=== PATIENT | male | born 1955 | race Caucasian/White ===

== ENCOUNTER 2020-10-27 06:38 | Emergency (ER) | payer MEDICARE, MEDICAID, SELFPAY ==
[2020-10-27 07:22] VITALS: BP 144/90; PULSE 85; RESP 18; TEMP 37.7; O2SAT 95; BMI 34.3
--- NOTE | 2020-10-27 08:00 | ED.GENADULT ---
HPI - General Adult General Chief complaint: General Medical Stated complaint: FLU LIKE SYMPTOMS Time Seen by Provider: 10/27/20 07:29 Source: patient Limitations: language barrier (translator/interpreter used for interview) History of Present Illness HPI narrative: 65-year-old male who presents emergency department for evaluation of headache and body aches. He states that he has been feeling sick for approximately 3 days. He states that his entire body aches, describes it as a dull constant achiness in all of his muscles. Also states that he has a dull, constant, diffuse headache which is [id number] in intensity. The patient states he has had fatigue as well. He denied fever, chills, cough, sore throat, chest pain, shortness of breath, dyspnea on exertion. The patient did not take any medications for his symptoms. He has not had any known COVID-19 contacts or other sick contacts. Related Data Allergies Allergy/AdvReac Type Severity Reaction Status Date / Time lisinopril [LISINOPRIL] Allergy Severe ANGIOEDEMA- Verified 10/27/20 07:24 TONGUE SWELLING Review of Systems Review of Systems: Yes all other systems are reviewed and are negative Constitutional: Constitutional: Reports as per HPI Eyes: Eyes: Reports as per HPI ENT: Reports as per HPI Cardiovascular: Cardiovascular: Reports as per HPI Respiratory: Respiratory: Reports as per HPI Gastrointestinal: Gastrointestinal: Reports as per HPI Genitourinary: Genitourinary: Reports as per HPI Musculoskeletal: Musculoskeletal: Reports as per HPI Integumentary/Breasts: Skin/Breast: Reports as per HPI Neurologic: Reports as per HPI and Reports Abnormal speech present Psychiatric: Psychiatric: Reports as per HPI Allergic/Immunologic: Allergic/Immunologic: Reports as per HPI [facility]LY [facility] Past Medical History FOR[facility] Narrative: Patient has a history of hypertension, hyperlipidemia and asthma. He denies tobacco, alcohol or drug use. Medical History Asthma High cholesterol HTN (hypertension) Social History Social History Advance Directives: No Advance Directives Information Provided: No Physical Exam Vital Signs: Vital Signs: Last Vital Signs Temp 99.9 F 10/27/20 07:22 Pulse 85 10/27/20 07:22 Resp 18 10/27/20 07:22 BP 144/90 H 10/27/20 07:22 Pulse Ox 95 10/27/20 07:22 Body Mass Index 34.3 Const: General: cooperative and healthy appearing Orientation/consciousness: oriented to person and oriented to place Limitations: no limitations HENMT: Head: Yes normal to inspection, Yes normocephalic and Yes atraumatic Ears: external ears normal General nose exam: Normal external nose present Face and sinus: Yes normal facial exam Mouth: Normal oral and palatal mucosa present Throat: Yes posterior oropharynx normal Eyes: Periorbital: periorbital findings normal Eyelids: Yes eyelids normal Conjunctivae: conjunctivae normal Sclerae: sclerae normal Corneas: corneas normal Pupils: Equal, round and reactive pupils present Direct Ophthalmoscopy: normal light reflex Neck: Neck: Yes full ROM, Yes no lymphadenopathy, Yes no meningeal signs, Yes trachea midline and Yes supple Chest: Chest palpation & inspection: normal inspection of the chest and normal palpation of entire chest wall Resp: Effort & Inspection: normal respiratory effort and able to speak in complete sentences Auscultation: clear to auscultation bilaterally Cardio: Rate: regular rate Rhythm: regular rhythm Heart sounds: S1 normal heart sound present, S2 normal heart sound present and no murmurs GI: Inspection: Yes normal to inspection Palpation (GI): Soft to palpation, nontender, no guarding, not rigid and No hepatosplenomegaly present : General: Yes no CVA tenderness Back/Spine/Pelvis: Back: no CVA tenderness Cervical Spine: normal cervical lordosis Thoracic/Lumbar Spine: thoracic and lumbar spine normal to inspection Skin: Lesions: no lesions Rashes: no rashes Wounds: no wounds Neuro: General: oriented to person, oriented to place and no meningeal signs Cranial nerves: Yes Equal, round and reactive pupils present Cognition (Neuro): normal cognition Speech: Abnormal speech present Motor exam (neuro): 5/5 motor strength present throughout Extrem: General: Yes normal to inspection and Yes full ROM Psych: Appearance: well kempt Mental Status: mental status grossly normal Speech and movement: Normal speech and movement present Affect: normal affect Attitude: cooperative Thought process: Normal thought process present Thought content: Normal thought content present Course Course Course Narrative: 65-year-old male with history of hypertension, hyperlipidemia and asthma who presents emergency department for evaluation of 3 days of myalgias and headache. His physical examination revealed that he had a low-grade fever of 99.9, O2 saturation was 95% on room air with normal pulse and respiratory rate. Lung exam was clear. Patient most likely has a viral syndrome. He will be tested for COVID-19 and for influenza. Was advised to take Tylenol, ibuprofen and rest. He was given printed instructions and discharged home. 1659: The patient's influenza and RSV tests were negative. The patient's COVID-19 test was positive. I did obtain a cell phone number ([phone]) from the patient and I called this number several times and left a message to call back the ED however I did not get a call back from the patient. There was a next of kin number which I called but the person who answered the phone stated that he was not related to this patient. At this time I am not able to contact the patient to inform him of his positive COVID-19 test. Medical Decision Making Lab Data Labs: Lab Results 10/27/20 Range/Units 08:27 Coronavirus (PCR) POSITIVE A (Negative) Influenza Type A (PCR) NEGATIVE (Negative) Influenza Type B (PCR) NEGATIVE (Negative) RSV RNA Qual (PCR) NEGATIVE (Negative) Discharge Plan Discharge Clinical Impression: Viral illness Patient Disposition: Home, Self-Care Instructions: Viral Syndrome (ED) Additional Instructions: Based on your symptoms and history, you were tested forCOVID-19. Your RESULT IS PENDING at this time. Your result should be back today. You will be contacted with either a NEGATIVE OR POSITIVE results. Please wait until we contact you for your results. Based on your evaluation today, it is okay to send you home. Please plan for self quarantine for up to 14 days. Do not expose yourself to others. You may not go to work. If testing does come back negative you may return to activities as long as you are no longer having any symptoms for at least 3 days. Please continue to wear a mask, follow cold instructions and wash your hands frequently. You may take Tylenol 325 mg pills, 2 pills every 4 hours as needed for pain or fever. You may also take ibuprofen(Motrin/Advil) 200 mg pills, 3 pills every 6 hours as needed for pain or fever. Patient seen in the emergency department should be excused from work until negative test results AND until 72 hours without any symptoms have gone away completely OR at least 10 days have passed since symptoms first appeared or since last exposure to COVID-19 positive patient CDC Guidelines for home isolation: - Stay away from others - WEAR A MASK if you are sick AND STAY HOME - Cover your mouth and nose with a tissue when you cough or sneeze. Dispose of tissues in a lined trash can and wash your hands immediately with soap and water for at least 20 seconds. If soap and water are not available, clean hands with alcohol-based hand chain mortiser operator that contains at least 60% alcohol. - Clean your hands often with soap and water for at least 20 seconds - Avoid touching your eyes, nose and mouth with unwashed hands - Do not share dishes, drinking glasses, cups, eating utensils, towels, or bedding with other people in your home. After using these items, wash them thoroughly with soap and water or put in the nurse monitoring. - Clean high-touch surfaces in your isolation area ( sick room and bathroom) every day; let a caregiver clean and disinfect high-touch surfaces in other areas of the home. Clean the area or item with soap and water or another detergent if it is dirty. Then, use a household disinfectant. - Limit contact with pets and animals: If you must care for a pet, wash your hands before and after interacting with them). Take ibuprofen 200 mg pills, 3 pills every 6 hours as needed for pain. Take Tylenol (acetaminophen) 500 mg pills, 2 pills every 4 to 6 hours as needed for pain. Follow-up with your doctor in 2 days. Please return to the emergency department if your symptoms get worse or if you develop any symptoms that are concerning to you. Interventions: ED Discharge Assessment Last Done: 10/27/20 08:57 Discharge Date/Time: 10/27/20 08:58 Print Language: Bolivian
[2020-10-27 09:24] LABS: Influenza A PCR NEGATIVE (Negative); Influenza B PCR NEGATIVE (Negative); Resp Syncy Virus RNA Qual PCR NEGATIVE (Negative); SARS COV2 PCR INHOUSE POSITIVE (Negative)
== END 2020-10-27 08:58 | disposition home or self-care (01) ==
PROVIDERS: Emergency Provider Emergency Medicine Emergency Medical Services
DX: U07.1 COVID-19 (principal); I10 Essential (primary) hypertension; J45.909 Unspecified asthma, uncomplicated
CPT/HCPCS: 0241U; 36415; 99283

== ENCOUNTER → 2021-05-02 10:50 | Outpatient (BNVA) | payer MEDICARE, MEDICAID, SELFPAY | PROVIDERS: PCP General Practice; Visit Provider Physician Assistant | DX: M19.011 Primary osteoarthritis, right shoulder (principal) | CPT/HCPCS: 20610; 99202; J1040 ==

== ENCOUNTER 2021-12-22 08:11 | Outpatient (REF) | payer MEDICARE, MEDICAID, SELFPAY ==
--- NOTE | ~2021-12-22 | XR_ITS ---
EXAMINATION: XR HIP, RIGHT CLINICAL INFORMATION: Right hip pain COMPARISON: None TECHNIQUE: Two views of the right hip. FINDINGS: Mild right hip joint narrowing seen. No fracture or dislocation recognized. Alignment and articulations are maintained. Visualized SI joint within normal limits. XR/XR hip RT min 2V IMPRESSION: No acute bony pathology right hip.
== END 2021-12-22 08:12 | disposition home or self-care (01) ==
LOC: HO.XRAY 08:11
PROVIDERS: PCP General Practice; Visit Provider General Practice
DX: M25.551 Pain in right hip (principal)
CPT/HCPCS: 73502

== ENCOUNTER → 2022-03-20 12:53 | Outpatient (BNVA) | payer MEDICARE, MEDICAID, SELFPAY | PROVIDERS: PCP General Practice; Visit Provider Urology | DX: N40.1 Benign prostatic hyperplasia with lower urinary tract symptoms (principal); R35.1 Nocturia | CPT/HCPCS: 51798; 99212 ==

== ENCOUNTER 2022-10-11 05:48 | Outpatient (REF) | payer MEDICARE, MEDICAID, SELFPAY ==
--- NOTE | ~2022-10-11 | XR_ITS ---
EXAMINATION: XR SHOULDER, RIGHT CLINICAL INFORMATION: M25.511 - Pain in right shoulder COMPARISON: Radiographs right shoulder 10/09/2018, 03/12/2014 TECHNIQUE: Right shoulder is imaged in 3 views. FINDINGS: There are progressive prominent osteoarthritis involving the glenohumeral joint with joint narrowing and subchondral sclerosis and subchondral cysts. Bulky osteophyte from the inferior medial humeral head is less well defined and possibility of subacute fragmentation cannot be excluded. There is probable mineralization or ossification at the short head biceps adjacent to the coracoid process. The acromioclavicular alignment is normal. There are mild degenerative changes acromioclavicular joint. XR/XR shoulder RT min 2V IMPRESSION: 1. Progressive prominent osteoarthritis glenohumeral joint. 2. Bulky osteophyte inferior medial humeral head less well defined and possibility of subacute fragmentation cannot be excluded. 3. Suspect mineralization/ossification near origin short head biceps. 4. Mild degenerative changes acromioclavicular joint.
== END 2022-10-11 05:49 | disposition home or self-care (01) ==
LOC: HO.HOSX 05:48
PROVIDERS: Visit Provider Physician Assistant
DX: M19.011 Primary osteoarthritis, right shoulder (principal)
CPT/HCPCS: 20610; 73030; 99212; J1040

== ENCOUNTER 2023-03-06 08:21 | Outpatient (REF) | payer MEDICARE, MEDICAID, SELFPAY ==
[2023-03-06 10:46] LABS: Prostate Specific Antigen 4.56 ng/mL (<0.05-4.0)
== END 2023-03-06 08:22 | disposition home or self-care (01) ==
LOC: HO.LAB 08:21
PROVIDERS: Visit Provider Urology
DX: Z12.5 Encounter for screening for malignant neoplasm of prostate (principal); N13.8 Other obstructive and reflux uropathy; N40.1 Benign prostatic hyperplasia with lower urinary tract symptoms; R35.1 Nocturia
CPT/HCPCS: 36415; 84153

== ENCOUNTER → 2023-03-26 08:37 | Outpatient (BNVA) | payer MEDICARE, MEDICAID, SELFPAY | PROVIDERS: PCP General Practice; Visit Provider Urology | DX: N40.1 Benign prostatic hyperplasia with lower urinary tract symptoms (principal); R35.1 Nocturia | CPT/HCPCS: 51798; 99212 ==

== ENCOUNTER 2023-12-23 06:48 | Outpatient (REF) | payer MEDICARE, MEDICAID, SELFPAY ==
[2023-12-23 08:30] LABS: PSA,Total (Free>4and<10) 1.33 ng/mL (0.00-4.00)
== END 2023-12-23 06:49 | disposition home or self-care (01) ==
LOC: HO.LAB 06:48
PROVIDERS: PCP General Practice; Visit Provider Urology
DX: N40.1 Benign prostatic hyperplasia with lower urinary tract symptoms (principal); Z12.5 Encounter for screening for malignant neoplasm of prostate
CPT/HCPCS: 36415; 84153

== ENCOUNTER 2023-12-31 08:35 | Outpatient (REF) | payer MEDICARE, MEDICAID, SELFPAY ==
[2023-12-31 11:43] LABS: Estimated Average Glucose 123 mg/dL; Hemoglobin A1c % 5.9 % (<6.0)
[2023-12-31 11:46] LABS: Alanine Aminotransferase 26 U/L (0-40); Albumin Level 4.1 g/dL (3.5-5.0); Alkaline Phosphatase 70 U/L (39-117); Anion Gap 10 (12-20); Aspartate Amino Transferase 24 U/L (5-37); Bilirubin Total 0.3 mg/dL (0.0-1.0); Blood Urea Nitrogen 13 mg/dL (9-16); Calcium 9.2 mg/dL (8.4-10.2); Carbon Dioxide 27 mmol/L (22-29); Chloride 109 mmol/L (96-108); Cholesterol 131 mg/dL (<200); Estimated Glomerular Filt Rate > 60; Glucose Random 104 mg/dL (60-115); HDL Cholesterol 39 mg/dL (>40); LDL Cholesterol Calculated 52 mg/dL (<100); Potassium 4.2 mmol/L (3.3-5.1); Sodium 142 mmol/L (135-145); Total Protein 7.6 g/dL (6.5-8.0); Triglycerides 200 mg/dL (<150)
[2023-12-31 12:17] LABS: ~HepC Num1 0.21 S/CO (0.00-0.79); ~Hepatitis C Antibody Nonreactive (Nonreactive)
== END 2023-12-31 08:36 | disposition home or self-care (01) ==
LOC: HO.HHCL 08:35
PROVIDERS: Visit Provider General Practice
DX: I10 Essential (primary) hypertension (principal); R79.9 Abnormal finding of blood chemistry, unspecified
CPT/HCPCS: 36415; 51798; 80053; 80061; 83036; 86803; 99212

== ENCOUNTER 2023-12-31 09:39 | Outpatient (AMB) | payer MEDICARE, MEDICAID, SELFPAY ==
--- NOTE | 2023-12-31 09:44 | A.OFFVIS_ITS ---
Intake Intake Visit Reasons: 1Y PSA(set) Intake Note: Patient presents today for a follow-up on: Meds- Finasteride, Tamsulosin Allergies to Antibiotic- No Known Allergies Blood Thinner- Aspirin Post Void Residual: 0ml Patient Symptoms: Patient stated feelin very well Launch Operator Required: Yes Accompanied by: Self / Same As Patient Allergies lisinopril [LISINOPRIL] Allergy (Severe, Verified 12/31/23 09:51) ANGIOEDEMA- TONGUE SWELLING HPI HPI Comments History of Present Illness Details Bijan is a pleasant [place] male. He is a patient of Dr. Novoa. He is seen for the following urologic conditions. - lower urinary tract symptoms Moldovan translation provided in office by qualified site medical director Successful trial of finasteride PSA fallen to 1.3 from 4.6 Continue Repeat in 6 months to ensure stability Lower urinary tract symptoms Longstanding Current therapy includes tamsulosin 0.8 mg Nocturia x1 Mild hesitancy Complete emptying PSA 05/09 2.3, 03/12 4.6 PFSH Medical History Hypercholesterolemia Chronic back pain Lateral epicondylitis Inflammation of colonic mucosa External hemorrhoids Shoulder arthritis Other obstructive and reflux uropathy Benign prostatic hyperplasia with lower urinary tract symptoms High cholesterol Asthma HTN (hypertension) Surgical History History of surgery Social History Alcohol intake: never Patient Tobacco Use Status: Never used Tobacco Current occupational status: unemployed Current occupation: rt handed Review of Systems Const Denies chills and Denies fever(s) Card Reports no additional complaints and Denies syncope Resp Denies cough GI Denies abdominal pain and Denies heartburn Reports as per HPI and Denies change in libido Neuro Denies syncope Psych Denies change in libido Endo Denies change in libido Physical Exam Const General: cooperative, healthy appearing, comfortable and no acute distress Orientation/consciousness: patient oriented x3 HEENT Face and sinus: Yes normal facial exam Mouth: moist mucous membranes Neck Neck: Yes normal visual inspection, Yes full ROM and Yes trachea midline Chest Chest palpation & inspection: normal inspection of the chest Resp Effort & Inspection: normal respiratory effort, able to speak in complete sentences and no respiratory distress GI Inspection: Yes normal to inspection Back/Spine/Pelvis Cervical Spine: normal cervical lordosis Thoracic/Lumbar Spine: thoracic and lumbar spine normal to inspection Skin General skin exam: no rashes or lesions noted Neuro General: patient oriented x3, gait normal, tone normal and moves all extremities Extrem General: Yes normal to inspection and Yes capillary refill normal Office Procedures Post Void Residual Post Residual Void Post Void Residual (PVR): 0 [id number] Void Residual by ultrasound Assessment & Plan Assessment & Plan (1) Elevated PSA: Code(s): R97.20 - Elevated prostate specific antigen [PSA] Plan Six-month follow-up Orders: Orders AMB Post Void Residual by ultrasound Today R33.9 - Retention of urine, unspecified PSA,Total (Free>4and<10) 6 Months R97.20 - Elevated prostate specific antigen [PSA] Patient Instructions: Imaging studies, laboratory and physical exam results were discussed and reviewed in detail. No major barriers to patient understanding were identified. An opportunity to ask questions regarding the treatment plan was provided. All questions were answered. The patient expressed understanding and agreement with the above treatment plan. The patient is aware they should contact our office by phone for worsening of their current condition or the appearance of new urologic symptoms. Compliance is encouraged with any medications and followup testing that is ordered. It is a privilege to participate in the urologic care of your patient. If you have any questions or concerns regarding treatment for the above conditions, or other urologic issues, please do not hesitate to contact me. The office telephone contact is [phone]. This note is constructed using voice recognition software. While every effort has been made to ensure accuracy continuous improvement consultant errors may have been included. Yours sincerely, Dr Telly Rubi MD, [facility] - Urology Providers of Expert, Compassionate Care for the Genitourinary System Coding Level of Care Code Est Pt Level 3 (13394) Diagnoses Elevated PSA R97.20 CPT Codes Post Residual Void - PVR CPT Code: 81982-Mhbx Void Residual by ultrasound ([id number])
== END 2023-12-31 09:58 | disposition home or self-care (01) ==
PROVIDERS: PCP General Practice; Visit Provider Urology
DX: R97.20 Elevated prostate specific antigen [PSA] (principal)
CPT/HCPCS: 99213

== ENCOUNTER 2024-02-18 08:59 | Outpatient (REF) | payer MEDICARE, MEDICAID, SELFPAY ==
--- NOTE | ~2024-02-18 | XR_ITS ---
EXAMINATION: XR SHOULDER, RIGHT CLINICAL INFORMATION: Pain in unspecified shoulder COMPARISON: Right shoulder 10/11/2022 TECHNIQUE: AP neutral, Grashey and axillary views of the right shoulder. FINDINGS: There are severe changes of osteoarthritis involving the glenohumeral joint with joint space narrowing, subchondral sclerosis and subchondral cysts. Bulky osteophyte is again noted extending from the inferior medial humeral head, similar in appearance compared to the prior study. There is probable mineralization or ossification at the short head biceps adjacent to the coracoid process. There are mild degenerative changes of the acromioclavicular joint. XR/XR shoulder RT min 2V IMPRESSION: 1. Severe osteoarthritis of the glenohumeral joint. 2. Bulky osteophyte extending from the inferior medial humeral head, similar in appearance compared to the prior study. 3. Mild degenerative changes of the acromioclavicular joint.
== END 2024-02-18 09:00 | disposition home or self-care (01) ==
LOC: HO.HOSX 08:59
PROVIDERS: Visit Provider Physician Assistant
DX: M19.011 Primary osteoarthritis, right shoulder (principal)
CPT/HCPCS: 20610; 73030; 99212; J1010

== ENCOUNTER 2024-02-18 10:32 | Outpatient (AMB) | payer MEDICARE, MEDICAID, SELFPAY ==
--- NOTE | 2024-02-18 10:46 | A.OFFVIS_ITS ---
Intake Visit Reasons: OV - Right Shoulder OA - Last Injection 10/11/22 Intake Note: Bijan is a 68 year old right hand dominant male who presents today for a follow up of rt shoulder OA, last injection 10/11/22. Patient reports he would like to repeat the injection due to his last injection gave him about 1 year + of relief. Allergies lisinopril [LISINOPRIL] Allergy (Severe, Verified 02/18/24 10:46) ANGIOEDEMA- TONGUE SWELLING HPI HPI OV - Right Shoulder OA - Last Injection 10/11/22: Details: 68-year-old right hand dominant male who presents in the office today for a follow up of right shoulder pain. Patient was last seen in the office by Clint Ko PA-C on 10/11/2022 when he was given a cortisone injection. While in the office today the patient reports he would like a repeat injection due to the last injection giving him over 1 year of relief. [facility] Medical History Hypercholesterolemia Chronic back pain Lateral epicondylitis Inflammation of colonic mucosa External hemorrhoids Shoulder arthritis Other obstructive and reflux uropathy Benign prostatic hyperplasia with lower urinary tract symptoms High cholesterol Asthma HTN (hypertension) Surgical History History of surgery Social History (Updated 02/18/24 @ 10:47 by Steve Russell) Alcohol intake: never Patient Tobacco Use Status: Never used Tobacco Current occupational status: disabled Current occupation: rt handed Review of Systems Const All systems reviewed & are unremarkable except as noted in HPI and below Physical Exam Const General: cooperative, healthy appearing and no acute distress Resp Effort & Inspection: normal respiratory effort and able to speak in complete sentences Cardio Rate: regular rate Peripheral pulses: Peripheral pulses 2+ throughout GI Palpation (GI): Soft to palpation Skin Lesions: no lesions Rashes: no rashes Extrem Other: Right shoulder normal to inspection. No ecchymosis, redness, edema. Patient is lacking about 40 of forward flexion, 40? of abduction. ER significantly limited. He has pain and difficulty with range of motion in all planes. NVI. Office Procedures Joint Injection/Drain Joint Injection/Drain Primary Site: right shoulder Injected: 80 mg of, DepoMedrol, with 8 mL of (2% plain lido ) and in the subcromial space Approach Used: posterolateral Procedure: The patient tolerated the procedure well, but had some pain with the injection and there was some relief with the local anesthesia Coding 70698 - Large joint Procedure code (CPT) selection complete Assessment & Plan Assessment & Plan (1) Arthritis of right glenohumeral joint: Code(s): M19.011 - Primary osteoarthritis, right shoulder Category: Medical Plan Mr. Josef Agosto is a 68-year-old right hand dominant male who presents in the office today for a follow up of right shoulder pain. Patient was last seen in the office by Clint Ko PA-C on 10/11/2022 when he was given a cortisone injection. While in the office today the patient reports he would like a repeat injection due to the last injection giving him over 1 year of relief. The patient was offered a cortisone injection in the right shoulder with 80 mg of DepoMedrol. The patient was explained the risk, benefits, and alternatives to receiving this injection. After receiving consent for the injection, the patient had the procedure done while in the office today. The patient tolerated the procedure well with no complications. Follow up will be PRN, or sooner if needed. X-rays of the right shoulder which were obtained while in the office today and were reviewed by , Maylin Gonzales PA-C, revealed glenohumeral joint arthritis. Orders: Orders XR shoulder RT min 2V Today M25.519 - Pain in unspecified shoulder Patient Instructions: Scribed by Kiki Reid durable medical equipment technician, for Maylin Gonzales PA-C on 02/18/2024 at 10:34 am, EST. Coding Level of Care Code Est Pt Level 3 (44836) Diagnoses Arthritis of right glenohumeral joint M19.011 CPT Codes Coding - 95869 Large joint: 10618 - Large joint ([id number])
== END 2024-02-18 11:04 | disposition home or self-care (01) ==
PROVIDERS: PCP General Practice; Visit Provider Physician Assistant
DX: M19.011 Primary osteoarthritis, right shoulder (principal)
CPT/HCPCS: 20610; 99213

== ENCOUNTER 2024-05-05 08:50 | Outpatient (REF) | payer MEDICARE, MEDICAID, SELFPAY ==
--- NOTE | ~2024-05-05 | XR_ITS ---
EXAMINATION: XR LUMBOSACRAL SPINE CLINICAL INFORMATION: Pain with extension, lumbar spondylosis, patient states pain for years. COMPARISON: X-ray right hip 12/22/2021. MRI lumbar spine 03/05/2016, x-ray lumbar spine 12/20/2015, 05/28/2012. TECHNIQUE: 4 views of the lumbosacral spine. FINDINGS: Rotatory levoscoliosis of the lumbar spine. Multilevel Schmorl's nodules were better characterized on MRI. Transitional anatomy with partial sacralization of L5, better characterized on MRI. Multilevel facet arthritis. Advanced multilevel lumbar spondylosis with multilevel loss of disc space height most marked at L4-L5. XR/XR lumbar spine 2-3V IMPRESSION: Advanced multilevel lumbar spondylosis most marked at L4-L5.
== END 2024-05-05 08:51 | disposition home or self-care (01) ==
LOC: HO.HHCX 08:50
PROVIDERS: Visit Provider General Practice
DX: M47.816 Spondylosis without myelopathy or radiculopathy, lumbar region (principal)
CPT/HCPCS: 72100

== ENCOUNTER 2024-08-07 07:05 | Outpatient (REF) | payer MEDICARE, MEDICAID, SELFPAY ==
[2024-08-07 08:41] LABS: Prostate Specific Antigen 1.62 ng/mL (<0.05-4.0)
== END 2024-08-07 07:06 | disposition home or self-care (01) ==
LOC: HO.LAB 07:05
PROVIDERS: PCP General Practice; Visit Provider Urology
DX: R97.20 Elevated prostate specific antigen [PSA] (principal); Z12.5 Encounter for screening for malignant neoplasm of prostate
CPT/HCPCS: 36415; 84153

== ENCOUNTER 2024-08-11 10:06 | Outpatient (AMB) | payer MEDICARE, MEDICAID, SELFPAY ==
--- NOTE | 2024-08-11 09:58 | A.OFFVIS_ITS ---
Intake Visit Reasons: 6M Follow Up- PSA(set) Intake Note: Patient is present for 6M F/U PSA Urology Medication:TAMSULOSIN, FINASTERIDE Antibiotic Allergy:NONE Blood Thinner:ASPIRIN Foreman/Project Manager Required: No Allergies lisinopril [LISINOPRIL] Allergy (Severe, Verified 08/11/24 09:59) ANGIOEDEMA- TONGUE SWELLING HPI Comments Details: Bijan is a pleasant [place] male. He is a patient of Dr. Novoa. He is seen for the following urologic conditions. - lower urinary tract symptoms Telemedicine Evaluation 15 min Consultation [employer] Video [place] translation provided in office by qualified pesticide use medical coordinator PSA has continued to fall. Now 1.6. Reports trouble with hesitancy At alpha-mitra Repeat six-month in office Lower urinary tract symptoms Longstanding Current therapy includes tamsulosin 0.8 mg Nocturia x1 Mild hesitancy Complete emptying PSA 05/09 2.3, 03/12 4.6, 01/11 1.3, 08/13 1.6 PFSH Medical History Hypercholesterolemia Chronic back pain Lateral epicondylitis Inflammation of colonic mucosa External hemorrhoids Shoulder arthritis Other obstructive and reflux uropathy Benign prostatic hyperplasia with lower urinary tract symptoms High cholesterol Asthma HTN (hypertension) Surgical History History of surgery Social History (Updated 02/18/24 @ 10:47 by Steve Russell) Alcohol intake: never Patient Tobacco Use Status: Never used Tobacco Current occupational status: disabled Current occupation: rt handed Review of Systems Const All systems reviewed & are unremarkable except as noted in HPI and below Reports no additional complaints Resp Reports no additional complaints GI Reports no additional complaints Reports as per HPI Musc Reports no additional complaints Physical Exam Telemedicine evaluation Appropriate responses Regular breathing rate and rhythm HEENT Head: Yes normal to inspection Ears: hearing grossly normal bilaterally Eyes General: appearance normal, both eyes and all related structures Neck Neck: Yes normal visual inspection Chest Chest palpation & inspection: normal inspection of the chest Resp Effort & Inspection: normal respiratory effort and able to speak in complete sentences Telehealth Telehealth Telehealth Platform: [employer] Location of provider rendering services: practice address Location of patient: address on file Patient Identification confirmed using: Name, : Yes Telehealth method: video Patient verbally consented to treatment: Yes Patient verbally consented to billing insurance company: Yes Patient informed of any privacy concerns related to visit: Yes Minutes spent on Phone/Video with Pt.: 15 Assessment & Plan Assessment & Plan (1) Elevated PSA: Code(s): R97.20 - Elevated prostate specific antigen [PSA] Category: Medical (2) Nocturia more than twice per night: Code(s): R35.1 - Nocturia Category: Medical Plan Six-month follow-up PSA office Start terazosin Orders: Orders PSA,Total (Free>4and<10) 6 Months R97.20 - Elevated prostate specific antigen [PSA] Prostate Specific Antigen 08/07/24 R97.20 - Elevated prostate specific antigen [PSA] Medications: New terazosin 5 mg PO BEDTIME 90 days 90 caps 1RF N40.1 - Benign prostatic hyperplasia with lower urinary tract symptoms, R35.0 - Frequency of micturition, R97.20 - Elevated prostate specific antigen [PSA] Discontinued tamsulosin Discontinued Reason: Doctor's Order 0.8 mg (2 x 0.4 mg) PO DAILY 90 days 180 caps 1RF Patient Instructions: Imaging studies, laboratory and physical exam results were discussed and reviewed in detail. No major barriers to patient understanding were identified. An opportunity to ask questions regarding the treatment plan was provided. All questions were answered. The patient expressed understanding and agreement with the above treatment plan. The patient is aware they should contact our office by phone for worsening of their current condition or the appearance of new urologic symptoms. Compliance is encouraged with any medications and followup testing that is ordered. It is a privilege to participate in the urologic care of your patient. If you have any questions or concerns regarding treatment for the above conditions, or other urologic issues, please do not hesitate to contact me. The office telep joelle contact is [phone]. This note is constructed using voice recognition software. While every effort has been made to ensure accuracy support engineer errors may have been included. Yours sincerely, Dr Telly Rubi MD, [facility] - Urology Providers of Expert, Compassionate Care for the Genitourinary System Coding Level of Care Code Tele Est Pt Level 4 (95983) Diagnoses Elevated PSA R97.20 Nocturia more than twice per night R35.1
== END 2024-08-11 11:06 | disposition home or self-care (01) ==
LOC: HO.HUSH 10:06
PROVIDERS: PCP General Practice; Visit Provider Urology
DX: R97.20 Elevated prostate specific antigen [PSA] (principal); R35.1 Nocturia
CPT/HCPCS: 99214

== ENCOUNTER → 2024-08-11 10:06 | Outpatient (BNVA) | payer MEDICARE, MEDICAID, SELFPAY | PROVIDERS: PCP General Practice; Visit Provider Urology ==

== ENCOUNTER 2025-01-04 15:07 | Outpatient (REF) | payer MEDICARE, MEDICAID, SELFPAY ==
[2025-01-04 16:27] LABS: MANUAL DIFF FLAG NO
[2025-01-04 16:40] LABS: Basophils Percent Auto 0.5 % (0-2); Eosinophils Absolute Auto 0.3 X10*3/uL (0.0-0.4); Hematocrit 41.4 % (42.0-52.0); Hemoglobin 13.7 g/dl (14.0-18.0); Imm Gran Abs Auto 0.01 X10*3/uL (0.00-0.03); Imm Gran Pct Auto 0.2 % (0.0-0.4); Lymphocytes Absolute Auto 2.4 X10*3/uL (1.2-4.9); Lymphocytes Percent Auto 38.9 % (20-40); Mean Corpuscular HGB Conc 33.1 g/dl (31.0-36.0); Mean Corpuscular Hemoglobin 30.9 pg (27.0-33.0); Mean Corpuscular Volume 93.2 fL (80.0-98.0); Mean Platelet Volume 9.7 fL (9.4-12.4); Monocytes Absolute Auto 0.6 X10*3/uL (0.1-1.2); Monocytes Percent Auto 10.1 % (2-11); Neutrophils Absolute Auto 2.9 x10*3/uL (2.0-8.3); Neutrophils Percent Auto 46.3 % (45-73); Platelet Count 234 X10*3/uL (160-400); Red Blood Count 4.44 X10*6/uL (4.60-5.80); White Blood Count 6.2 X10*3/uL (4.8-10.8)
[2025-01-04 16:51] LABS: Estimated Average Glucose 128 mg/dL; Hemoglobin A1C 151.6675 umol/L; Hemoglobin A1c % 6.1 % (<6.0)
[2025-01-04 17:07] LABS: Alanine Aminotransferase 28 U/L (0-40); Albumin Level 4.1 g/dL (3.5-5.0); Alkaline Phosphatase 56 U/L (39-117); Anion Gap 8 (12-20); Aspartate Amino Transferase 23 U/L (5-37); Bilirubin Total 0.4 mg/dL (0.0-1.0); Blood Urea Nitrogen 11 mg/dL (9-16); Carbon Dioxide 28 mmol/L (22-29); Chloride 108 mmol/L (96-108); Estimated Glomerular Filt Rate > 60; Glucose Random 96 mg/dL (60-115); Lipase 10 U/L (8-78); Potassium 4.2 mmol/L (3.3-5.1); Sodium 140 mmol/L (135-145); Total Protein 7.9 g/dL (6.5-8.0)
== END 2025-01-04 15:08 | disposition home or self-care (01) ==
LOC: HO.HHCL 15:07
PROVIDERS: Visit Provider General Practice
DX: R73.03 Prediabetes (principal); R10.9 Unspecified abdominal pain
CPT/HCPCS: 36415; 80053; 83036; 83690; 85025

== ENCOUNTER 2025-02-12 06:24 | Outpatient (REF) | payer MEDICARE, MEDICAID, SELFPAY ==
--- OUTSIDE RECORDS SUMMARY | 2025-02-12 06:27 | XMS_ITS | Clinical Summary ---
Author Organization [facility] Address [address] [place] [address] [address] [place] [address] Care Team Providers Care Lace Tearing Supervisor Name Role Phone Alicja Cameron MD Primary Care Provider [phone] Allergies Active Allergy Reactions Criticality Noted Date Comments Lisinopril 07/31/2012 Other reaction(s): angioedema Medications Blood Pressure Monitoring (Omron 3 Series BP Monitor) device USE TO CHECK BLOOD PRESSURE DIRECTED 09/03/20 22 Active Combigan 0.2-0.5 % ophthalmic solution INSTILL 1 DROP IN THE RIGHT EYE TWICE DAILY 10/05/20 22 Active dorzolamide (Trusopt) 2 % ophthalmic solution INSTILL 1 DROP IN THE RIGHT EYE TWICE DAILY DIRECTED 11/08/19 23 Active ketorolac (Acular) 0.5 % ophthalmic solution PLACE 1 DROP IN THE RIGHT EYE THREE TIMES DAILY 06/22/20 22 Active latanoprost (Xalatan) 0.005 % ophthalmic solution INSTILL 1 DROP IN EACH EYE AT BEDTIME 10/17/20 22 Active Menthol-Methyl Salicylate (Muscle Rub) 10-15 % cream APPLY TOPICALLY TO LOWER BACK AND HIP RIGHT TWICE DAILY 12/21/19 22 Active tamsulosin (Flomax) 0.4 MG 24 hr capsule TAKE 1 CAPSULE BY MOUTH TWICE DAILY IN THE MORNING AND IN THE EVENING 12/12/19 22 Active albuterol (Ventolin HFA) 108 (90 Base) MCG/ACT inhaler Inhale 2 puffs every 6 (six) hours if needed for wheezing or shortness of breath. 18 g 11 02/16/20 23 Active cetirizine (ZyrTEC) 10 MG tablet Take 1 tablet (10 mg) by mouth in the morning. 90 tablet 2 02/16/20 23 Active finasteride (Proscar) 5 MG tablet Take 5 mg by mouth at bedtime. 06/03/20 23 Active Rhopressa 0.02 % solution INSTILL 1 DROP IN THE RIGHT EYE AT BEDTIME 05/15/20 23 Active benzocaine-menthol (Cepastat Sore Throat) 15-3.6 MG Dissolve 1 lozenge in the mouth every 2 (two) hours if needed for sore throat. 168 lozenge 07/12/20 23 Active gabapentin (Neurontin) 300 MG capsule TAKE 1 CAPSULE BY MOUTH THREE TIMES DAILY IN THE MORNING, AT NOON, AND AT BEDTIME 270 capsule 3 03/26/20 24 Active naproxen (Naprosyn) 375 MG tablet Take 1 tablet (375 mg) by mouth with breakfast and with evening meal. 60 tablet 3 05/04/20 24 025 Active cyclobenzaprine (Flexeril) 5 MG tablet TAKE 1 TABLET BY MOUTH THREE TIMES DAILY FOR 20 DAYS 30 tablet 1 05/25/20 24 Active Aspirin EC Adult Low Dose 81 MG EC tablet TAKE 1 TABLET BY MOUTH EVERY EVENING 90 tablet 3 06/18/20 24 Active D3-1000 25 MCG (1000 UT) capsule TAKE 1 CAPSULE BY MOUTH EVERY MORNING 90 capsule 3 06/18/20 24 Active hydroCHLOROthiazid e (HYDRODiuril) 25 MG tablet TAKE 1 TABLET BY MOUTH EVERY MORNING 90 tablet 3 07/16/20 24 Active metoprolol succinate XL (Toprol-XL) 50 MG 24 hr tablet TAKE 1 TABLET BY MOUTH EVERY MORNING 90 tablet 3 08/12/20 24 Active fluticasone furoate (Arnuity Ellipta) 200 MCG/ACT inhaler INHALE 1 PUFF BY MOUTH EVERY DAY AT THE SAME TIME RINSE MOUTH AFTER USING. DO NOT SWALLOW 1 each 3 10/23/19 25 Active atorvastatin (Lipitor) 20 MG tabletIndications: Other hyperlipidemia TAKE 1 TABLET BY MOUTH EVERY EVENING 90 tablet 3 11/10/19 25 Active omeprazole (PriLOSEC) [address] capsule TAKE 1 CAPSULE BY MOUTH EVERY MORNING 90 capsule 3 11/10/19 25 Active albuterol (2.5 MG/3ML) 0.083% nebulizer solution Take 3 mL (2.5 mg) by nebulization every 4 (four) hours if needed for wheezing. 75 mL 3 01/05/20 25 026 Active brimonidine (AlphaGAN) 0.2 % ophthalmic solution instill 1 drop in each eye twice daily 12/15/19 25 Active ofloxacin (Ocuflox) 0.3 % ophthalmic solution 12/26/19 25 Active prednisoLONE acetate (Pred-Forte) 1 % ophthalmic suspension 12/26/19 25 Active terazosin (Hytrin) 5 MG capsule Take 5 mg by mouth at bedtime. 10/20/20 24 Active Active Problems Problem Noted Date Diagnosed Date Obesity, morbid 01/05/2025 Pre-operative exam 01/05/2025 Assessment & Plan (01/05/2025 6:48 AM EDT): Pt is low risk for a low risk surgery, ok to proceed without further cardiac risk stratification. Moderate persistent asthma without complication 02/15/2023 Assessment & Plan (12/30/2023 9:34 AM EDT): Continue Percy Assessment & Plan (02/20/2023 6:28 AM EDT): Increased SOB and chest tightness x 2 weeks Mild wheezing on exam Sats> 95% Prednisone 40mg daily x 5 days Albuterol refills sent followup precautions for not improving on this regimen after 24 hours Prediabetes 11/18/2022 Ocular hypertension 11/29/2021 Assessment & Plan (07/15/2023 9:39 AM EDT): Drops per opthalmology Osteoarthritis of right shoulder 02/13/2021 Obesity (BMI 30.0-34.9) 09/25/2018 Essential hypertension 04/28/2018 Assessment & Plan (12/30/2023 9:34 AM EDT): Maintenance: hydrochlorothiazide and Metoprolol BMP: today Lipid Panel: total 150, LDL 54 ASCVD Risk: Calculate pending updated labs EKG: Obtain baseline at f/u - Aerobic exercise to reduce BP. Initial goal of 30 min walk 3-5x/week. Increase as tolerated. - low-sodium diet (goal: <2g/day) and heart healthy diet such as DASH to reduce BP and prevent ASCVD. - Home BP monitoring 1-2 x day with goal of <140/90. - Seek immediate medical attention for chest pain, palpitations, SOB, syncope, or sudden changes in mental status. - Do not change or discontinue current prescriptions without first consulting health care provider Assessment & Plan (07/15/2023 9:39 AM EDT): Maintenance: hydrochlorothiazide and Metoprolol BMP: DUE Lipid Panel: total 150, LDL 54 ASCVD Risk: Calculate pending updated labs EKG: Obtain baseline at f/u - Aerobic exercise to reduce BP. Initial goal of 30 min walk 3-5x/week. Increase as tolerated. - low-sodium diet (goal: <2g/day) and heart healthy diet such as DASH to reduce BP and prevent ASCVD. - Home BP monitoring 1-2 x day with goal of <140/90. - Seek immediate medical attention for chest pain, palpitations, SOB, syncope, or sudden changes in mental status. - Do not change or discontinue current prescriptions without first consulting health care provider Assessment & Plan (02/20/2023 6:30 AM EDT): Maintenance: hydrochlorothiazide and Metoprolol BMP: due Lipid Panel: total 150, LDL 54 ASCVD Risk: Calculate pending updated labs EKG: Obtain baseline at f/u - Aerobic exercise to reduce BP. Initial goal of 30 min walk 3-5x/week. Increase as tolerated. - low-sodium diet (goal: <2g/day) and heart healthy diet such as DASH to reduce BP and prevent ASCVD. - Home BP monitoring 1-2 x day with goal of <140/90. - Seek immediate medical attention for chest pain, palpitations, SOB, syncope, or sudden changes in mental status. - Do not change or discontinue current prescriptions without first consulting health care provider Lumbar spondylosis 04/28/2018 Assessment & Plan (05/04/2024 2:05 PM EDT): No red flag symptoms - Naproxen and Flexeril - PT referral - lumbar xray today - consider MRI if failure to improve after 6 weeks of conservative treatment BPH associated with nocturia 09/17/2017 Vitamin D deficiency 12/19/2015 Hyperlipidemia 12/26/2012 Gastroesophageal reflux disease 05/06/2012 Asthma 04/24/2012 Assessment & Plan (07/15/2023 9:40 AM EDT): Well controlled Continue controller and LUIS MIGUEL prn Depressive disorder 04/24/2012 Encounters Date Type Department Care Team Description 01/05/[address] [address] Traci Delacruz RN Forms/questionnaires 01/05/[address] [address] Traci Delacruz RN Results 01/04/2025 2:30 PM EDT Office Visit [address] [phone] Alicja Cameron MD Pre-operative exam (Primary Dx); Gastric pain; Prediabetes; Dietary counseling; Exercise counseling; Class 1 obesity with serious comorbidity and body mass index (BMI) of 34.0 to 34.9 in adult, unspecified obesity type 01/04/2025 Travel 12/09/2024 Telephone [facility] [address] [place] [address] Alicja Cameron MD PRE-OP from Last 3 Months Immunizations Name Administration Dates Next Due Influenza injectable quadriv alent preservative free 09/25/2018 Influenza, IIV3, injectable 07/18/2011 Pfizer Covid-19 Vaccine 12+ 05/03/2022,0 01/01/2022,07/18/2021,06/27 Pfizer Covid-19 Vaccine 12+ darien-sucrose (Torres Cap) 05/03/2022,01/01/2022 Pneumococcal Conjugate PCV 20 12/19/2022 Pneumococcal Polysaccharide PPSV23 01/23/2016, TD (adult), 2 Lf tetanus tox oid, preservative free, adsorbed 09/03/2022,12/16/2007 Tdap 04/25/2012 Zoster, Recombinant 02/20/2023,12/19/2022 Social History Tobacco Use Types Packs/Day Years Used Date Smoking Tobacco: Never Smokeless Tobacco: Never Tobacco Cessation:Counseling Given: Not Answered Alcohol Use Standard Drinks/Week Comments Never 0 (1 standard drink = 0.6 oz pur e alcohol) Depression Answer Date Recorded Patient Health Questionnaire-9 Score 0 02/15/2023 Housing Stability Answer Date Recorded What is your housing situation today? I have katerina keenan 04/28/[address] you li ve. Do you have problems with any of the following? None of the above 04/28/2024 Food Insecurity Answer Date Recorded Within the past 12 months, y ou worried that your food would run out before you got money to buy more: Never True 04/28/2024 Within the past 12 months,th e food you bought just didn't last and you didn't have enough money to get more: Never True 06/2024 Transportation Answer Date Recorded In the past 12 months, has l ack of transportation kept you from medical appts, meetings, work or from getting things needed for daily living? No 04/28/2024 Utilities Answer Date Recorded In the past 12 months, has t he electric, gas, oil or water company threatened to shut off services in your home? No 04/28/2024 Depression Answer Date Recorded Patient Health Questionnaire-2 Score 0 02/15/2023 Internet Access Answer Date Recorded Internet Access Q1 Yes 06/22/2024 Internet Access Q2 Not on file 06/22/2024 Sex and Gender Information Value Date Recorded Sex Assigned at Male 08/20/2022 10:16 AM EDT Legal Sex Male 10:16 AM EDT Gender Identity Male 08/20/2022 10:16 AM EDT Sexual Orientation Choose not to disclose 2021 10:16 AM EDT Last Filed Vital Signs Vital Sign Reading Time Taken Comments Blood Pressure 133/82 01/04/2025 2:44 PM EDT Pulse 60 01/04/2025 2:44 PM EDT Temperature 37 ??C (98.6 ??F) 01/04/2025 2:44 PM EDT Respiratory Rate 18 01/04/2025 2:44 PM EDT Oxygen Saturation 96% 05/04/2024 11: 56 AM EDT Inhaled Oxygen Concentration - - Weight 91.1 kg (200 lb 12.8 oz) 01/04/2025 2:44 PM EDT Height 161.3 cm (5' 3.5 ) 01/04/2025 2:44 PM EDT Body Mass Index 35.01 01/04/2025 2:44 PM EDT Plan of Treatment Health Maintenance Due Date Last Done Comments CT Colonography 1957 Colonoscopy 1957 Colorectal Cancer Screening 1957 FIT DNA/Cologuard 1957 FIT 1957 FOBT 1957 Sigmoidoscopy 1957 Alcohol/Substance Use Screening 1969 RSV Patients and Patients Aged 60 years or older (1 - Risk 60-74 years 1-dose series) 2017 Depression Screening 02/16/2024 02/15/2023, 02/16/20 23 COVID-19 Vaccine ( season) 2024 05/03/2022, 05/03/2022, 01/01/2022, Additional history exists Influenza Vaccine (#1) 2024 09/25/2018, 2010 SDOH Screening 04/28/2025 04/28/2024 Diabetes: Hemoglobin A1C 01/04/2026 025, 01/04/2025, 12/31/2023, Additional history exists Tobacco Screening 01/04/2026 01/04/2025 Lipid Panel 12/30/2028 12/31/2023, 08/21, 10/17/2021, Additional history exists DTaP/Tdap/Td Vaccines (3 - Td or Tdap) 09/03/2032 09/03/2022, 04/25/2012, 12/16/2007 Pneumococcal Vaccine: 50+ Years Completed 12/19/2022, 01/23/2016, 01/16/2008 Zoster Vaccines Completed 02/20/2023, 12/19/2022 Hepatitis C Screening Completed 12/31/2023 HIB Vaccines Aged Out No longer eligi ble based on patient's age to complete this topic HPV Vaccines Aged Out No longer eligi ble based on patient's age to complete this topic Hepatitis A Vaccines Aged Out No long er eligible based on patient's age to complete this topic Hepatitis B Vaccines Aged Out No long er eligible based on patient's age to complete this topic IPV Vaccines Aged Out No longer eligi ble based on patient's age to complete this topic Meningococcal Vaccine Aged Out No ruby rowdy eligible based on patient's age to complete this topic RSV under 20 months Aged Out No longe r eligible based on patient's age to complete this topic Rotavirus Vaccines Aged Out No longer eligible based on patient's age to complete this topic Procedures Procedure Name Priority Date/Time Associated Diagnosis Comments ECG 12-LEAD Routine 01/05/2025 6:44 AM EDT Pre-operative exam LIPASE Routine 01/04/2025 3:10 PM EDT Gastric pain CBC WITH AUTO DIFFERENTIAL Routine 01/04/2025 3:10 PM EDT Gastric pain COMPREHENSIVE METABOLIC PANEL Routine 01/04/2025 3:10 PM EDT Gastric pain HEMOGLOBIN A1C Routine 01/04/2025 3:10 PM EDT Prediabetes POCT GLYCATED HEMOGLOBIN, TOTAL Routine 01/04/2025 3:04 PM EDT Prediabetes POCT GLUCOSE Routine 01/04/2025 3:02 PM EDT Prediabetes HEPATITIS C ANTIBODY Routine 12/31/2023 8:40 AM EDT Essential hypertension LIPID PANEL, STANDARD Routine 12/31/2023 8:40 AM EDT Essential hypertension from Last 3 Months or Most Recently Relevant to Health Maintenance Results * ECG 12 lead (01/05/2025 6:44 AM EDT) Alicja Garg MD - 01/05/2025 6:44 AM EDT NSR, no acute ST-T segment changes, VR 58 us Alicja Cameron MD ECG ORDERABLES Final Result * (ABNORMAL) CBC auto differential (01/04/2025 3:10 PM EDT) White Blood Count 6.2 4.8 - 10.8 X10*3/uL [facility] Red Blood Count 4.44(L) 4.60 - 5.80 X10*6/uL [facility] Hemoglobin 13.7(L) 14.0 - 18.0 g/dl [facility] Hematocrit 41.4(L) 42.0 - 52.0 % [facility] Mean Corpuscular Volume 93.2 80.0 - 98.0 fL [facility] Mean Corpuscular Hemoglobin 30.9 27.0 - 33.0 pg [facility] Mean Corpuscular HGB Conc 33.1 31.0 - 36.0 g/dl [facility] Red Cell Distribution Width 12.0 11.0 - 16.0 % [facility] Platelet Count 234 160 - 400 X10*3/uL [facility] Mean Platelet Volume 9.7 9.4 - 12.4 fL [facility] Neutrophils Percent Auto 46.3 45 - 73 % [facility] Imm Gran Pct Auto 0.2 0.0 - 0.4 % [facility] Lymphocytes Percent Auto 38.9 20 - 40 % [facility] Monocytes Percent Auto 10.1 2 - 11 % [facility] Eosinophils Percent Auto 4.0 0 - 4 % [facility] Basophils Percent Auto 0.5 0 - 2 % [facility] NRBC Pct Auto 0.0 0.0 - 0.2 /100WBC [facility] Neutrophils Absolute Auto 2.9 2.0 - 8.3 x10*3/uL [facility] Imm Gran Abs Auto 0.01 0.00 - 0.03 X10*3/uL [facility] Lymphocytes Absolute Auto 2.4 1.2 - 4.9 X10*3/uL [facility] Monocytes Absolute Auto 0.6 0.1 - 1.2 X10*3/uL [facility] Eosinophils Absolute Auto 0.3 0.0 - 0.4 X10*3/uL [facility] Basophils Absolute Auto 0.0 0.0 - 0.2 X10*3/uL [facility] NRBC Abs Auto 0.000 0.0 - 0.012 X10*3/uL [facility] Blood Venous blood specimen / Unknown 01/04/2025 3:10 PM EDT 01/04/2025 4:18 PM EDT Alicja Cameron MD LAB BLOOD ORDERABLES Final Res ult Performing Organization Address [facility]/ZIP Co de Phone Number [facility] [address] [place] [address] [phone] * Lipase (01/04/2025 3:10 PM EDT) Lipase 10 8 - 78 U/L [facility] Blood Venous blood specimen / Unknown 01/04/2025 3:10 PM EDT 01/04/2025 4:18 PM EDT Alicja Cameron MD LAB BLOOD ORDERABLES Final Res ult Performing Organization Address [facility] Co de Phone Number [facility] [address] [place] [address] [phone] * (ABNORMAL) Hemoglobin A1c (01/04/2025 3:10 PM EDT) Hemoglobin A1c 6.1(H) <6.0 % [facility] Comment:Hemoglobin A1C Refer ence Range Adults: 4.8 - 6.0 % Non diabetic: < 6.0 % Goal: < 7.0 %Additional Action Suggested: > 8.0 %Note: Hemoglobin A1c results are invalid for patients with abnormal amounts of HbF. Blood transfusions may impact the HbA1c concentration in the patient sample. Estimated Average Glucose 128 mg/dL [facility] Comment:eAG = Estimated ave rage glucose which is %A1C expressed asaverage glucose, using the formula of the L8I-[id number] Glucose study (ADAG), Diabetes Care, Vol.31,#8,May. 2007 Blood Venous blood specimen / Unknown 01/04/2025 3:10 PM EDT 01/04/2025 4:24 PM EDT Result [facility] Alicja Cameron MD LAB BLOOD ORDERABLES Final Res ult Performing Organization Address [facility]/ZIP Co de Phone Number [facility] [address] [place] [address] [phone] * (ABNORMAL) Comprehensive Metabolic Panel (01/04/2025 3:10 PM EDT) Sodium 140 135 - 145 mmol/L [facility] Potassium 4.2 3.3 - 5.1 mmol/L [facility] Chloride 108 96 - 108 mmol/L [facility] Carbon Dioxide 28 22 - 29 mmol/L [facility] Anion Gap 8(L) 12 - 20 [facility] Urea Nitrogen (BUN) 11 9 - 16 mg/dL [facility] Creatinine, Serum 0.77 0.5 - 1.4 mg/dL [facility] Estimated Glomerular Filt Rate >60 [facility] Comment:Chronic Kidney Disea se: Estimated GFR < 60 mL/min/1.21k2Doyeno Kidney Disease: Estimated GFR < 15 mL/min/1.73m2 Glucose 96 60 - 115 mg/dL [facility] Calcium 9.0 8.4 - 10.2 mg/dL [facility] Bilirubin, Total 0.4 0.0 - 1.0 mg/dL [facility] Aspartate Amino Transferase 23 5 - 37 U/L [facility] Alanine Aminotransferase 28 0 - 40 U/L [facility] Total Protein 7.9 6.5 - 8.0 g/dL [facility] Albumin Level 4.1 3.5 - 5.0 g/dL [facility] Alkaline Phosphatase 56 39 - 117 U/L [facility] Blood Venous blood specimen / Unknown 01/04/2025 3:10 PM EDT 01/04/2025 4:18 PM EDT Alicja Cameron MD LAB BLOOD ORDERABLES Final Res ult Performing Organization Address [facility]/ZIP Co de Phone Number [facility] [address] [place] [address] [phone] * POCT HGB A1C (01/04/2025 3:04 PM EDT) Hemoglobin A1C 6.0 4.0 - 6.0 % QC Media Lot # [id number] Lot# Expiration Date Blood 01/04/2025 3:04 PM EDT Alicja Cameron MD POINT OF CARE TEST ENTER/EDIT ORDERABLES Final Result * POCT Glucose (01/04/2025 3:02 PM EDT) Glucose Blood, POC 140 60 - 200 mg/dL [employer] Lot # [id number] Lot# Expiration Date Blood Capillary blood specimen / Unknown 01/04/2025 3:02 PM EDT Alicja Cameron MD POINT OF CARE TEST ENTER/EDIT ORDERABLES Final Result * Hepatitis C Ab (12/31/2023 8:40 AM EDT) Pathologist [facility] Hepatitis C Antibody Nonreactive Nonreactive [facility] Comment:Antibodies to HCV no t detected; does not exclude early acuteHCV infection. Blood Venous blood specimen / Unknown 12/31/2023 8:40 AM EDT 12/31/2023 11:18 AM EDT Alicja Cameron MD LAB BLOOD ORDERABLES Final Res ult [facility] [address] [place] [phone] * (ABNORMAL) Lipid Panel, Standard (12/31/2023 8:40 AM EDT) Triglycerides 200(H) <150 mg/dL [facility] Comment:Desirable Triglyceri de: less than 150 mg/dLBorderline High Triglyceride 150-199 mg/dLHigh Triglyceride: 200-499 mg/dLVery High Triglyceride: greater than or equal to 5OO mg/dL Cholesterol 131 <200 mg/dL [facility] Comment:Desirable Cholestero l: less than 200 mg/dLBorderline High Cholesterol: 200-239 mg/dLHigh Cholesterol: greater than 239 mg/dL LDL Cholesterol Calculated 52 <100 mg/dL [facility] Comment:Desirable LDL: less than 100 mg/dLNear Optimal/Above Optimal LDL: 110- 129 mg/dLBorderline High LDL: 130-159 mg/dLHigh LDL: 160-189 mg/dLVery High LDL: greater than or equal to 190 mg/dL HDL Cholesterol 39(L) >40 mg/dL [facility] Comment:Desirable HDL: great er than 40 mg/dL Note: This HDL assay may give artificially low results in patients with liver disease. Blood Venous blood specimen / Unknown 12/31/2023 8:40 AM EDT 12/31/2023 11:18 AM EDT us Alicja Cameron MD LAB BLOOD ORDERABLES Final Res ult [facility] [address] [place] [phone] from Last 3 Months or Most Recently Relevant to Health Maintenance Insurance [place] [address] [place] [address] [place] [id number] [facility] Care Teams Lace Tearing Supervisor Relationship Specialty Start Date End Date Alicja Cameron MD [address] [place] [phone] PCP - General Family Medicine 10/05/20
--- OUTSIDE RECORDS SUMMARY | 2025-02-12 06:27 | XMS_ITS | Encounter Summary ---
Author Organization [employer] Address [address] [facility] [address] [place] [address] Care Team Providers Care Open Source Developer Name Role Phone Alicja Cameron MD Primary Care Provider [phone] Reason for Visit * Reason Comments Med Refill Encounter Details Date Type Department Care Team ([facility] st Contact Info) Description 06/07/[address] [facility] [address] [place], [place] [phone] Alicja Cameron MD [address] [place], [place] [phone] Social History Tobacco Use Types Packs/Day Years Used Date Smoking Tobacco: Never Smokeless Tobacco: Never Alcohol Use Standard Drinks/Week Comments Never 0 (1 standard drink = 0.6 oz pur e alcohol) Depression Answer Date Recorded Patient Health Questionnaire-9 Score 0 02/15/2023 Housing Stability Answer Date Recorded What is your housing situation today? I have katerinayocasta keenan 04/28/[address] you [...] Recorded Patient Health Questionnaire-2 Score 0 02/15/2023 Sex and Gender Information Value Date Recorded Sex Assigned at Male 08/20/2022 10:16 AM EDT Legal Sex Male 10:16 AM EDT Gender Identity Male 08/20/2022 10:16 AM EDT Sexual Orientation Choose not to disclose 2021 10:16 AM EDT documented as of this encounter Plan of Treatment Not on file documented as of this encounter Visit Diagnoses Not on filedocumented in this encounter Additional Health Concerns Assessment Noted Time PHQ-9 Depression Total Score: 0 02/16/20 23 4:18 PM EDT documented as of this encounter Care Teams Open Source Developer Relationship Specialty Start Date End Date Alicja Cameron MD [address] [place] [address] PCP - General Family Medicine 10/05/20 documented as of this encounter
[2025-02-12 08:08] LABS: PSA,Total (Free>4and<10) 1.51 ng/mL (0.00-4.00)
== END 2025-02-12 06:25 | disposition home or self-care (01) ==
LOC: HO.LAB 06:24
PROVIDERS: PCP General Practice; Visit Provider Urology
DX: R97.20 Elevated prostate specific antigen [PSA] (principal); Z12.5 Encounter for screening for malignant neoplasm of prostate
CPT/HCPCS: 36415; 84153

== ENCOUNTER 2025-08-12 10:03 | Emergency (ER) | payer OTHER, SELFPAY ==
--- NOTE | ~2025-08-12 | XR_ITS ---
EXAMINATION: XR CHEST CLINICAL INFORMATION: chest pain, cough 1 mo COMPARISON: October 21, 2018. TECHNIQUE: PA and lateral views FINDINGS: No hyperinflation. No consolidation, pleural effusion or pneumothorax. Cardiomediastinal silhouette size is normal. Tortuosity, thoracic aorta. Multilevel cervical thoracic and upper lumbar spondylosis. Degenerative changes in the right shoulder with questionable soft tissue calcifications inferior to the glenohumeral joint. XR/XR chest 2V IMPRESSION: No acute airspace disease. 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 Electronically signed by: Derick Hodge MD 08/12/2025 10:49 AM EDT
--- OUTSIDE RECORDS SUMMARY | 2025-08-12 09:00 | XMS_ITS | Encounter Summary ---
Author Organization [email or web address] Address [address] [place] [address] Care Team Providers Care Molding Fitter Name Role Phone Alicja Cameron MD Primary Care Provider [phone] Reason for Visit * Reason Comments Asthma Encounter Details Date Type Department Care Team ([facility] st Contact Info) Description 08/12/2025 9:00 AM EDT Office Visit [facility] [address] [place], [place] [phone] Marivel Ramey DO [address] [place], [place] [phone] Moderate persistent asthma with acute exacerbation (Primary Dx) Social History Tobacco Use Types Packs/Day Years [...] AM EDT documented as of this encounter Last Filed Vital Signs Vital Sign Reading Time Taken Comments Blood Pressure 133/87 08/12/2025 9:48 AM EDT Pulse 67 08/12/2025 8:54 AM EDT Temperature 36.8 C (98.3 F) 08/12/2025 8:54 AM EDT Respiratory Rate 18 08/12/2025 8:54 AM EDT Oxygen Saturation 94% 08/12/2025 9:48 AM EDT Inhaled Oxygen Concentration - - Weight 85.5 kg (188 lb 9.6 oz) 08/12/2025 8:54 A M EDT Height 161.3 cm (5' 3.5 ) 08/12/2025 8:54 AM EDT Body Mass Index 32.88 08/12/2025 8:54 AM EDT documented in this encounter Progress Notes * Marivel Ramey, - 08/12/2025 8:40 AM EDT SUBJECTIVE Bijan Agosto is a 69 y.o. male who presents for Sick Visit. He presents to [place] today c/o asthma sx. He says he has been having asthma sx x 1 mos. He says he uses his asthma pump every day and he usesalbuterol via nebs prn. His says that he has been using the nebs 3 times a day every day without much relief. He doesn't have a rescue pump and he had to borrow the nebulizer machine. He c/o dry cough, wheezing and chest tightness. He hasn't had any stuffy nose; he started with runny nose last night. He denies any sore throat or ear pain. No fevers or chills. No sick contacts. He has never been hospitalized for asthma before. History provided by: Patient oval or circular glass cutter used: Yes Asthma Severity: Moderate Duration: 1 month Timing: Constant Progression: Unchanged Chronicity: New Associated symptoms: cough, rhinorrhea, shortness of breath and wheezing Associated symptoms: no abdominal pain, no chest pain, no congestion, no diarrhea, no ear pain, no fever, no headaches, no myalgias, no nausea, no sore throat and no vomiting Review of Systems Constitutional: Negative for activity change, appetite change, fever and unexpected weight change. HENT: Positive for rhinorrhea. Negative for congestion, ear pain, sore throat and trouble swallowing. Respiratory: Positive for cough, chest tightness, shortness of breath and wheezing. Cardiovascular: Negative for chest pain and palpitations. Gastrointestinal: Negative for abdominal pain, diarrhea, nausea and vomiting. Musculoskeletal: Negative for myalgias. Neurological: Negative for dizziness, weakness and headaches. Patient Active Problem List Diagnosis Asthma BPH associated with nocturia Depressive disorder Essential hypertension Gastroesophageal reflux disease Hyperlipidemia Lumbar spondylosis Obesity (BMI 30.0-34.9) Ocular hypertension Osteoarthritis of right shoulder Prediabetes Vitamin D deficiency Moderate persistent asthma without complication Obesity, morbid (HCC) Pre-operative exam Allergies Allergen Reactions Lisinopril Other reaction(s): angioedema OBJECTIVE Vitals: 08/12/25 0854 08/12/25 0948 BP: (!) 169/97 133/87 BP Location: Right arm Right arm Patient Position: Sitting Sitting BP Cuff Size: Large adult Large adult Pulse: 67 Resp: 18 Temp: 98.3 ??F (36.8 ??C) TempSrc: Temporal SpO2: 95% 94% Weight: 188 lb 9.6 oz (85.5 kg) Height: 5' 3.5 (1.613 m) Physical Exam Constitutional: General: He is not in acute distress. Appearance: Normal appearance. HENT: Right Ear: Tympanic membrane, ear canal and external ear normal. Left Ear: Tympanic membrane, ear canal and external ear normal. Nose: Congestion present. No rhinorrhea. Mouth/Throat: Pharynx: Posterior oropharyngeal erythema present. No oropharyngeal exudate. Cardiovascular: Rate and Rhythm: Normal rate and regular rhythm. Heart sounds: Normal heart sounds. No murmur heard. Pulmonary: Effort: Pulmonary effort is normal. Tachypnea present. No accessory muscle usage, respiratory distress or retractions. Breath sounds: Examination of the right-upper field reveals wheezing. Examination of the left-upperfield reveals wheezing. Examination of the right- middle field reveals wheezing. Examination of the left-middle field reveals wheezing. Examination of the right-lower field reveals wheezing. Examination of the left-lower field reveals wheezing. Wheezing present. No decreased breath sounds or rhonchi. Comments: Speaking in full sentences without difficulty. Treated with duoneb with continued wheezing. Musculoskeletal: Cervical back: Neck supple. No tenderness. Lymphadenopathy: Cervical: No cervical adenopathy. Neurological: General: No focal deficit present. Mental Status: He is alert and oriented to person, place, and time. Cranial Nerves: No cranial nerve deficit. Motor: No weakness. Gait: Gait normal. Psychiatric: Mood and Affect: Mood normal. Assessment/Plan Diagnoses and all orders for this visit: Moderate persistent asthma with acute exacerbation Treated with duo-neb with continued diffuse wheezing, tachypnea, and chest tightness -advised pt he needs further eval and mgmt in ED, he agrees with recommendation -he is given a single dose of prednisone 60 mg -he declines EMS transport will have spouse bring him directly to [facility] ED -JOSE RN notified [facility] ED triage of pt's arrival -he is to start extended prednisone taper and continue arnuity daily with albuterol prn after ED eval --Follow-up with PCP after ED visit-- Current Outpatient Medications: albuterol (2.5 MG/3ML) 0.083% nebulizer solution, Take 3 mL (2.5 mg) by nebulization every 4 (four)hours if needed for wheezing., Disp: 75 mL, Rfl: 3 albuterol (Ventolin HFA) 108 (90 Base) MCG/ACT inhaler, Inhale 2 puffs every 4 (four) hours if needed for wheezing or shortness of breath., Disp: 18 g, Rfl: 2 Arnuity Ellipta 200 MCG/ACT inhaler, INHALE 1 PUFF BY MOUTH EVERY DAY AT THE SAME TIME RINSE MOUTH AFTER USING, Disp: 30 each, Rfl: 3 Aspirin Low Dose 81 MG EC tablet, TAKE 1 TABLET BY MOUTH EVERY EVENING, Disp: 90 tablet, Rfl: 3 atorvastatin (Lipitor) 20 MG tablet, TAKE 1 TABLET BY MOUTH EVERY EVENING, Disp: 90 tablet, Rfl: 3 benzocaine-menthol (Cepastat Sore Throat) 15-3.6 MG, Dissolve 1 lozenge in the mouth every 2 (two) hours if needed for sore throat., Disp: 168 lozenge, Rfl: 0 benzonatate (Tessalon Perles) 100 MG capsule, Take 1 capsule (100 mg) by mouth if needed in the morning, at noon, and at bedtime for cough for up to 10 days. Do not crush or chew., Disp: 30 capsule, Rfl: 0 Blood Pressure Monitoring (Omron 3 Series BP Monitor) device, USE TO CHECK BLOOD PRESSURE DIRECTED, Disp: , Rfl: brimonidine (AlphaGAN) 0.2 % ophthalmic solution, instill 1 drop in each eye twice daily, Disp: , Rfl: cetirizine (ZyrTEC) 10 MG tablet, Take 1 tablet (10 mg) by mouth Once per day., Disp: 90 tablet, Rfl: 3 Combigan 0.2-0.5 % ophthalmic solution, INSTILL 1 DROP IN THE RIGHT EYE TWICE DAILY, Disp: , Rfl: cyclobenzaprine (Flexeril) 5 MG tablet, TAKE 1 TABLET BY MOUTH THREE TIMES DAILY FOR 20 DAYS, Disp:30 tablet, Rfl: 1 D3-1000 25 MCG (1000 UT) capsule, TAKE 1 CAPSULE BY MOUTH EVERY MORNING, Disp: 90 capsule, Rfl: 3 dorzolamide (Trusopt) 2 % ophthalmic solution, INSTILL 1 DROP IN THE RIGHT EYE TWICE DAILY DIRECTED, Disp: , Rfl: finasteride (Proscar) 5 MG tablet, Take 5 mg by mouth at bedtime., Disp: , Rfl: gabapentin (Neurontin) 300 MG capsule, TAKE 1 CAPSULE BY MOUTH THREE TIMES DAILY IN THE MORNING, ATNOON, AND AT BEDTIME, Disp: 270 capsule, Rfl: 3 hydroCHLOROthiazide (HYDRODiuril) 25 MG tablet, TAKE 1 TABLET BY MOUTH EVERY MORNING, Disp: 90 tablet, Rfl: 3 ketorolac (Acular) 0.5 % ophthalmic solution, PLACE 1 DROP IN THE RIGHT EYE THREE TIMES DAILY, Disp: , Rfl: latanoprost (Xalatan) 0.005 % ophthalmic solution, INSTILL 1 DROP IN EACH EYE AT BEDTIME, Disp: , Rfl: Menthol-Methyl Salicylate (Muscle Rub) 10-15 % cream, APPLY TOPICALLY TO LOWER BACK AND HIP RIGHT TWICE DAILY, Disp: , Rfl: metoprolol succinate XL (Toprol-XL) 50 MG 24 hr tablet, TAKE 1 TABLET BY MOUTH EVERY MORNING, Disp:30 tablet, Rfl: 7 ofloxacin (Ocuflox) 0.3 % ophthalmic solution, , Disp: , Rfl: omeprazole (PriLOSEC) [address] capsule, TAKE 1 CAPSULE BY MOUTH EVERY MORNING, Disp: 90 capsule, Rfl: 3 prednisoLONE acetate (Pred-Forte) 1 % ophthalmic suspension, , Disp: , Rfl: predniSONE (Deltasone) 20 MG tablet, Take 3 tabs PO daily x 4 days then take 2 tabs daily x 4 days then take 1 tab daily x 4 days, Disp: 24 tablet, Rfl: 0 Rhopressa 0.02 % solution, INSTILL 1 DROP IN THE RIGHT EYE AT BEDTIME, Disp: , Rfl: tamsulosin (Flomax) 0.4 MG 24 hr capsule, TAKE 1 CAPSULE BY MOUTH TWICE DAILY IN THE MORNING AND INTHE EVENING, Disp: , Rfl: terazosin (Hytrin) 5 MG capsule, Take 5 mg by mouth at bedtime., Disp: , Rfl: No current facility-administered medications for this visit. Scribe Attestation: Jefferson Campbell, am serving as a scribe to document services personally performed by Marivel Hunt, based on the patient's response to questions by provider and provider's statements to me. 08/12/25 12:20 PM Physicians Attestation: Marivel Campbell DO, have reviewed the information by the scribe, Jefferosn Vivar, for accuracy and agree with its content. documented in this encounter Plan of Treatment Upcoming Encounters Date Type Department Care Team (Late st Contact Info) Description 10/08/2025 2:15 PM EST Office Visit [facility] [address] [place] [address] Alicja Cameron MD [address] [place] [address] documented as of this encounter Visit Diagnoses Diagnosis Moderate persistent asthma with acute exacerbation- Primary documented in this encounter Administered Medications Inactive Administered Medications - up to 3 most recent administrations Medication Order MAR Action Action Date Dose Rate Site ipratropium-albuterol (Duo-Neb) 0.5-2.5 mg/3 mL nebulizer solution 3 mg 3 mg, Nebulization, Once, On Elizabeth 08/12/25 at 0900, For 1 doseIndications:Moderate persistent asthma with acute exacerbation Given 08/12/2025 9:00 AM EDT 3 mg predniSONE (Deltasone) tablet 60 mg 60 mg, Oral, Once, On Elizabeth 08/12/25 at 1000, For 1 doseIndications:Moderate persistent asthma with acute exacerbation Given 08/12/2025 10:00 AM EDT 60 mg documented in this encounter Additional Health Concerns Assessment Noted Time PHQ-9 Depression Total Score: 0 02/16/20 23 4:18 PM EDT documented as of this encounter Care Teams Molding Fitter Relationship Specialty Start Date End Date Alcija Cameron MD [address] [place] [id number] PCP - General Family Medicine 10/05/20 documented as of this encounter
--- NOTE | 2025-08-12 10:06 | ECG_ITS ---
Test Reason : cp Blood Pressure : */* mmHG Vent. Rate : 63 BPM Atrial Rate : 63 BPM P-R Int : 190 ms QRS Dur : 80 ms QT Int : 382 ms P-R-T Axes : 38 -18 62 degrees QTcB Int : 390 ms Normal sinus rhythm Normal ECG When compared with ECG of 24-Jan-2017 14:22, No significant change was found Referred By: Generic ED Physician Electronically Signed By: ANUP BROWN MD
--- NOTE | 2025-08-12 10:07 | ED.CHESTPAIN ---
HPI - Chest Pain General Chief Complaint: Upper Respiratory Symptoms Stated Complaint: Chest pain, SOB Time Seen by Provider: 08/12/25 10:18 Source: patient, RN notes reviewed, old records reviewed and spanish interpreter/translator Mode of arrival: ambulatory Limitations: language barrier History of Present Illness ED Provider: Beto HPI narrative: Patient is a 69-year-old Martiniquais-speaking male with history of arthritis, BPH, asthma, HTN, hypercholesterolemia presenting to the emergency department with complaint of nonproductive cough for the past month. He complains of wheezing and shortness of breath. Denies fevers. States for the past 2-3 weeks he has also had chest pain with his cough. Denies any chest pain at rest. Denies lower extremity edema. Seen at walk-in prior to arrival and was given breathing treatment there. MD complaint: chest pain and other (dyspnea) Related Data Home Medications ?Medication ?Instructions ?Recorded ?Confirmed aspirin 81 mg tablet,delayed 81 mg PO QPM 05/02/21 release atorvastatin 20 mg tablet 20 mg PO DAILY 05/02/21 cholecalciferol (vitamin D3) 25 25 mcg PO QAM 05/02/21 mcg (1,000 unit) tablet fluticasone propionate 220 2 puff inhalation BID 05/02/21 mcg/actuation HFA aerosol inhaler gabapentin 300 mg capsule 300 mg PO BID 05/02/21 hydrochlorothiazide 25 mg tablet 25 mg PO QAM 05/02/21 metoprolol succinate 50 mg 50 mg PO DAILY 05/02/21 tablet,extended release 24 hr omeprazole 20 mg capsule,delayed 20 mg PO DAILY 05/02/21 release brimonidine 0.2 %-timolol 0.5 % 1 drp ophthalmic-Right BID 03/20/22 eye drops (Combigan) dorzolamide 2 % eye drops 1 drp ophthalmic-Right BID 03/20/22 latanoprost 0.005 % eye drops 1 drp ophthalmic (eye) QPM 03/20/22 methyl salicylate 15 %-menthol 10 appl topical BID 03/20/22 % topical cream (Muscle Rub) naproxen 500 mg tablet 500 mg PO BID pain 03/20/22 Previous Rx's ?Medication ?Instructions ?Recorded terazosin 5 mg capsule 5 mg PO BEDTIME 90 days #90 caps 01/11/25 finasteride 5 mg tablet 5 mg PO DAILY 90 days #90 tabs 08/03/25 benzonatate 100 mg capsule 100 mg PO TID PRN cough #20 caps 08/12/25 prednisone 10 mg tablet See Rx Instructions .Route 08/12/25 .COMPLEX #15 tabs Allergies Allergy/AdvReac Type Severity Reaction Status Date / Time lisinopril (LISINOPRIL) Allergy Severe ANGIOEDEMA- Verified 08/12/25 10:12 TONGUE SWELLING Review of Systems Review of Systems: As per HPI Yes all other systems are reviewed and are negative Constitutional: Constitutional: Reports as per HPI [facility] Past Medical History Medical History Hypercholesterolemia Chronic back pain Lateral epicondylitis Inflammation of colonic mucosa External hemorrhoids Shoulder arthritis Other obstructive and reflux uropathy Benign prostatic hyperplasia with lower urinary tract symptoms High cholesterol Asthma HTN (hypertension) Surgical History History of surgery Social History Social History (Updated 02/18/24 @ 10:47 by Steve Russell) Alcohol intake: never Patient Tobacco Use Status: Never used Tobacco Advance Directives: No Advance Directives Information Provided: No Current occupational status: disabled Current occupation: rt handed Physical Exam Vital Signs: Vital Signs: Last Vital Signs Temp 98.1 F 08/12/25 13:12 Pulse 70 08/12/25 13:12 Resp 12 08/12/25 13:12 BP 136/80 08/12/25 13:12 Pulse Ox 95 08/12/25 13:12 O2 Del Method Room Air 08/12/25 13:12 BMI result Body Mass Index 29.8 Vital signs have been reviewed and appear to be correct. Blood pressure normal. Heart rate normal. Respiratory rate normal. Temperature normal. Oxygen saturation normal. Const: General: cooperative, healthy appearing and no acute distress Orientation/consciousness: oriented to person, oriented to place, oriented to time and patient oriented x3 Limitations: no limitations HEENT: Head: Yes normocephalic and Yes atraumatic Ears: external ears normal General nose exam: Normal external nose present Face and sinus: Yes face symmetric Mouth: oropharynx normal and moist mucous membranes Throat: Yes uvula midline Eyes: Pupils: Equal, round and reactive pupils present Neck: Neck: Yes normal visual inspection and Yes supple Resp: Effort & Inspection: normal respiratory effort and able to speak in complete sentences Auscultation: wheezes expiratory wheezes and throughout Cardio: Rate: regular rate Rhythm: regular rhythm Heart sounds: S1 normal heart sound present and S2 normal heart sound present GI: Palpation (GI): Soft to palpation and nontender Auscultation: normoactive bowel sounds : General: Yes no CVA tenderness Back/Spine/Pelvis: Back: no CVA tenderness Skin: General skin exam: elasticity normal and turgor normal Neuro: General: oriented to person, oriented to place, oriented to time, patient oriented x3, moves all extremities, no focal motor deficits and CN's II-XI intact bilaterally Cranial nerves: Yes Equal, round and reactive pupils present Cognition (Neuro): normal cognition Extrem: General: Yes full ROM, Yes no pedal edema and Yes no calf tenderness Psych: Mental Status: mental status grossly normal Affect: normal affect Thought process: Normal thought process present Course Course Course Narrative: This is an RME: Additional HPI, ROS, PE not included below will be deferred to primary provider. RME assessment and note performed by: Linn Davis PA-C This is a 00-[id number]-hpc-luxembourgish speaking male, with a hx of hypercholesterolemia, HTN, asthma, BPH, who presents to the ED with complaints of shortness of breath x 1 month. Reports that he believes that his asthma is acting up. Reporting that when he coughs he gets pain in his chest and back. He does report some chest pain at rest. Reporting dry cough. No fevers. Reports that he went to a walk in clinic where he was given prednisone 4 tablets as well as a duonebulizer which provided some relief. Lung sounds with inspiratory and expiratory wheezes throughout all lung sounds. Plan: Labs, EKG, CXR, viral swabs, further ER eval needed Medications Administered Discontinued Medications Generic Name Dose Route Start Last Admin Trade Name Freq PRN Reason Stop Dose Admin Albuterol Sulfate 2.5 mg/ 0 mg 08/12/25 10:41 08/12/25 10:47 Albuterol/Ipratropium 3 ml INHALE 08/12/25 10:42 2 dose ONCE ONE Administration Methylprednisolone Sodium Succinate 60 mg 08/12/25 11:58 08/12/25 12:17 Methylprednisolone Sod Succ 125 Mg/2 Ml Vial IVPUSH 08/12/25 11:59 60 mg ONCE ONE Administration Medical Decision Making Medical Decision Making [facility] Narrative: Patient is a 69-year-old Martiniquais-speaking male with history of arthritis, BPH, asthma, HTN, hypercholesterolemia presenting to the emergency department with complaint of nonproductive cough for the past month. On exam patient is awake, A+Ox3, VS WNL, afebrile, normal neurological exam without focal deficits, physical exam findings as above. Given reported symptoms and physical exam findings, initial differential includes but is not limited to asthma exacerbation, viral illness, bronchitis, pneumonia, costochondritis. Unlikely ACS given the ongoing nature of symptoms and pleuritic your of pain. Labs notable for no leukocytosis, negative troponin, normal BMP. X-ray chest notable for no evidence of pneumonia. My interpretation is in agreement with the radiologist's interpretation. Patient given breathing treatment in the ED, medicated with Solu-Medrol. He is stable for discharge home at this time. Will discharge on tapering course of prednisone as well as benzonatate. Advised follow up with PCP this week. Return precautions discussed. Patient verbalized understanding of and agreement with plan. In-person translator/interpreter was utilized for all interactions, assessments, and discussions. Differential Diagnosis Differential Diagnoses: The differential diagnosis associated with the presentation includes as per [facility] Admission/Observation Consideration of admission/observation: Escalation of care including admission/observation considered Patient would have been admitted to the hospital and transferred to appropriate facility had their clinical presentation warranted hospital admission. Lab Data [facility] Lab Attestation statement: I reviewed the patient's lab results. as per [facility] 08/12/25 10:28 08/12/25 10:28 Labs: Lab Results 08/12/25 Range/Units 10:28 WBC 8.6 (4.8-10.8) X10*3/uL RBC 4.87 (4.60-5.80) X10*6/uL Hgb 15.2 (14.0-18.0) g/dl Hct 45.4 (42.0-52.0) % MCV 93.2 (80.0-98.0) fL MCH 31.2 (27.0-33.0) pg MCHC 33.5 (31.0-36.0) g/dl RDW 12.0 (11.0-16.0) % Plt Count 211 (160-400) X10*3/uL MPV 9.2 L (9.4-12.4) fL Immature Gran % (Auto) 0.2 (0.0-0.4) % Neut % (Auto) 60.4 (45-73) % Lymph % (Auto) 24.5 (20-40) % Fulton % (Auto) 7.9 (2-11) % Eos % (Auto) 6.2 H (0-4) % Baso % (Auto) 0.8 (0-2) % Lymph # (Auto) 2.1 (1.2-4.9) X10*3/uL [place]on # (Auto) 0.7 (0.1-1.2) X10*3/uL Eos # (Auto) 0.5 H (0.0-0.4) X10*3/uL Baso # (Auto) 0.1 (0.0-0.2) X10*3/uL Abs Immat Gran (auto) 0.02 (0.00-0.03) X10*3/uL Absolute Neuts (auto) 5.2 (2.0-8.3) x10*3/uL Absolute Nucleated RBC 0.000 (0.0-0.012) X10*3/uL Nucleated RBC % (auto) 0.0 (0.0-0.2) /100WBC PT 12.1 (10.9-12.4) SEC INR 1.1 (0.9-1.1) Sodium 139 (135-145) mmol/L Potassium 4.5 (3.3-5.1) mmol/L Chloride 109 H (96-108) mmol/L Carbon Dioxide 26 (22-29) mmol/L Anion Gap 9 L (12-20) BUN 11 (9-16) mg/dL Creatinine 0.76 (0.5-1.4) mg/dL Estim Creat Clear Calc 95.7 Estimated GFR > 60 Random Glucose 101 (60-115) mg/dL Calcium 9.3 (8.4-10.2) mg/dL Magnesium 2.0 (1.6-2.6) mg/dL Total Bilirubin 0.6 (0.0-1.0) mg/dL Direct Bilirubin 0.2 (0.0-0.5) mg/dL AST 23 (5-37) U/L ALT 30 (0-40) U/L Alkaline Phosphatase 61 (39-117) U/L Troponin I High Sens < 2.7 (<3.5-35.0) ng/L NT-Pro-B Natriuret Pep 17.8 (<300) pg/mL Total Protein 7.7 (6.5-8.0) g/dL Albumin 4.4 (3.5-5.0) g/dL COVID-19 (MATILDA) Negative (Negative) COVID-19 Clin Com See Note Influenza Type A (RYDER) Negative (Negative) Influenza Type B (RYDER) Negative (Negative) Influenza A & B Note See Note Independent Interpretation I performed an independent interpretation of an: EKG (normal sinus rhythm, rate 63bpm, normal TN interval and QTc) and Plain X-Ray Interpretation: No evidence of pneumonia on chest x-ray Radiology Impression Discussion of test interpretation with radiology: I have reviewed the radiologist's reading. Radiologist Impression: XR/XR chest 2V IMPRESSION: No acute airspace disease. 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 External Record Review External record reviewed: Inpatient record, Office record and Outpatient record Prescription Management I considered prescription management with: Other Discharge Plan Discharge Clinical Impression: Asthma exacerbation, Costochondritis Patient Disposition: Home, Self-Care Instructions: Asthma (DC), Costochondritis (DC) Additional Instructions: You were evaluated in the emergency department today for cough, wheezing and shortness of breath. You are being treated for an asthma exacerbation with a short course of steroids to decrease inflammation. You are being prescribed benzonatate for cough which you can use every 8 hours as needed, PLEASE BE SURE TO KEEP THIS MEDICATION OUT OF THE REACH OF CHILDREN. Please follow-up with your primary care provider this week. Return to the emergency department if you develop worsening shortness of breath, difficulty breathing, chest pain, fever not improved with Tylenol or ibuprofen, or any other concerning symptoms. Prescriptions: New prednisone 10 mg tablet See Rx Instructions .ROUTE .COMPLEX Qty: 15 0RF Rx Instructions: 50mg (5 tabs) x1 day, then 40 mg (4 tabs) x1 day, then 30 mg (3 tabs) x1 day, then 20 mg (2 tabs) times 1 day, then 10 mg (1 tab) x1 day benzonatate 100 mg capsule 100 mg PO TID PRN (Reason: cough) Qty: 20 0RF No Action terazosin 5 mg capsule 5 mg PO BEDTIME 90 Days Qty: 90 1RF finasteride 5 mg tablet 5 mg PO DAILY 90 Days Qty: 90 1RF Flovent HFA 220 mcg/actuation HFA aerosol inhaler 2 puff inhalation BID gabapentin 300 mg capsule 300 mg PO BID aspirin 81 mg tablet,delayed release (DR/EC) 81 mg PO QPM cholecalciferol (vitamin D3) 25 mcg (1,000 unit) tablet 25 mcg PO QAM omeprazole 20 mg capsule,delayed release(DR/EC) 20 mg PO DAILY metoprolol succinate 50 mg tablet extended release 24 hr 50 mg PO DAILY atorvastatin 20 mg tablet 20 mg PO DAILY hydrochlorothiazide 25 mg tablet 25 mg PO QAM brimonidine-timolol [Combigan] 0.2-0.5 % drops 1 drp ophthalmic-Right BID dorzolamide 2 % drops 1 drp ophthalmic-Right BID latanoprost 0.005 % drops 1 drp ophthalmic (eye) QPM Muscle Rub 15-10 % cream topical BID naproxen 500 mg tablet 500 mg PO BID Interventions: ED Discharge Assessment Last Done: 08/12/25 13:12 Discharge Date/Time: 08/12/25 13:13 Print Language: Martiniquais
[2025-08-12 10:11] VITALS: BP 147/85; PULSE 61; RESP 16; TEMP 36.7; O2SAT 95; BMI 29.8
[2025-08-12 10:33] LABS: MANUAL DIFF FLAG NO
[2025-08-12 10:37] LABS: Hematocrit 45.4 % (42.0-52.0); Hemoglobin 15.2 g/dl (14.0-18.0); Imm Gran Abs Auto 0.02 X10*3/uL (0.00-0.03); Imm Gran Pct Auto 0.2 % (0.0-0.4); Lymphocytes Absolute Auto 2.1 X10*3/uL (1.2-4.9); Mean Corpuscular HGB Conc 33.5 g/dl (31.0-36.0); Mean Corpuscular Hemoglobin 31.2 pg (27.0-33.0); Mean Corpuscular Volume 93.2 fL (80.0-98.0); NRBC Abs Auto 0.000 X10*3/uL (0.0-0.012); NRBC Pct Auto 0.0 /100WBC (0.0-0.2); Platelet Count 211 X10*3/uL (160-400); Red Blood Count 4.87 X10*6/uL (4.60-5.80); White Blood Count 8.6 X10*3/uL (4.8-10.8)
[2025-08-12] MEDS: Albuterol Sulfate 2.5 MG, Albuterol/Iprat 2.5/0.5MG 3 ML 3 ML INHALE (10:47)
[2025-08-12 10:49] VITALS: PULSE 58; RESP 18; O2SAT 99
[2025-08-12 10:50] LABS: Alanine Aminotransferase 30 U/L (0-40); Albumin Level 4.4 g/dL (3.5-5.0); Alkaline Phosphatase 61 U/L (39-117); Anion Gap 9 (12-20); Aspartate Amino Transferase 23 U/L (5-37); Blood Urea Nitrogen 11 mg/dL (9-16); Calcium 9.3 mg/dL (8.4-10.2); Carbon Dioxide 26 mmol/L (22-29); Chloride 109 mmol/L (96-108); Creatinine Clr Calc Pharmacy 95.7; Estimated Glomerular Filt Rate > 60; Magnesium 2.0 mg/dL (1.6-2.6); Potassium 4.5 mmol/L (3.3-5.1); Sodium 139 mmol/L (135-145); Total Protein 7.7 g/dL (6.5-8.0)
[2025-08-12 10:54] LABS: NT Pro B Type Natriuretic Pept 17.8 pg/mL (<300)
[2025-08-12 10:55] LABS: Troponin-I High Sensitivity < 2.7 ng/L (<3.5-35.0)
[2025-08-12 10:59] LABS: INTERNATIONAL NORM RATIO 1.1 (0.9-1.1); Prothrombin Time 12.1 SEC (10.9-12.4)
[2025-08-12 11:03] LABS: COVID-19 Test Negative (Negative); IDNOW Serial# 55D5AD1C; IDNOW Serial# 58CA691E; Influenza B2 Negative (Negative)
[2025-08-12 11:44] VITALS: BP 136/80; PULSE 70; RESP 12; O2SAT 95
[2025-08-12 13:12] VITALS: BP 136/80; PULSE 70; RESP 12; TEMP 36.7; O2SAT 95
--- OUTSIDE RECORDS SUMMARY | 2025-08-12 14:56 | XMS_ITS | Clinical Summary ---
Author Organization [employer] Address [address] [facility] [address] [place] [address] Care Team Providers Care Plaster Machine Operator Name Role Phone Alicja Cameron MD Primary Care Provider [phone] Allergies Active Allergy Reactions Criticality Noted Date Comments Lisinopril 07/31/2012 Other reaction(s): angioedema Medications Blood Pressure Monitoring (Omron 3 Series BP Monitor) device USE TO CHECK BLOOD PRESSURE DIRECTED Active Combigan 0.2-0.5 % ophthalmic solution INSTILL 1 DROP IN THE RIGHT EYE TWICE DAILY Active dorzolamide (Trusopt) 2 % ophthalmic solution INSTILL 1 DROP IN THE RIGHT EYE TWICE DAILY DIRECTED Active ketorolac (Acular) 0.5 % ophthalmic solution PLACE 1 DROP IN THE RIGHT EYE THREE TIMES DAILY Active latanoprost (Xalatan) 0.005 % ophthalmic solution INSTILL 1 DROP IN EACH EYE AT BEDTIME Active Menthol-Methyl Salicylate (Muscle Rub) 10-15 % cream APPLY TOPICALLY TO LOWER BACK AND HIP RIGHT TWICE DAILY Active tamsulosin (Flomax) 0.4 MG 24 hr capsule TAKE 1 CAPSULE BY MOUTH TWICE DAILY IN THE MORNING AND IN THE EVENING Active finasteride (Proscar) 5 MG tablet Take 5 mg by mouth at bedtime. Active Rhopressa 0.02 % solution INSTILL 1 DROP IN THE RIGHT EYE AT BEDTIME Active benzocaine-mentho l (Cepastat Sore Throat) 15-3.6 MG Dissolve 1 lozenge in the mouth every 2 (two) hours if needed for sore throat. 168 lozenge 023 Active cyclobenzaprine (Flexeril) 5 MG tablet TAKE 1 TABLET BY MOUTH THREE TIMES DAILY FOR 20 DAYS 30 tablet 1 024 Active atorvastatin (Lipitor) 20 MG tabletIndications :Other hyperlipidemia TAKE 1 TABLET BY MOUTH EVERY EVENING 90 tablet 3 025 Active omeprazole (PriLOSEC) [address] capsule TAKE 1 CAPSULE BY MOUTH EVERY MORNING 90 capsule 3 025 Active albuterol (2.5 MG/3ML) 0.083% nebulizer solution Take 3 mL (2.5 mg) by nebulization every 4 (four) hours if needed for wheezing. 75 mL 3 025 2025 Active brimonidine (AlphaGAN) 0.2 % ophthalmic solution instill 1 drop in each eye twice daily Active ofloxacin (Ocuflox) 0.3 % ophthalmic solution Active prednisoLONE acetate (Pred-Forte) 1 % ophthalmic suspension 025 Active terazosin (Hytrin) 5 MG capsule Take 5 mg by mouth at bedtime. 024 Active gabapentin (Neurontin) 300 MG capsule TAKE 1 CAPSULE BY MOUTH THREE TIMES DAILY IN THE MORNING, AT NOON, AND AT BEDTIME 270 capsule 3 025 Active Arnuity Ellipta 200 MCG/ACT inhaler INHALE 1 PUFF BY MOUTH EVERY DAY AT THE SAME TIME RINSE MOUTH AFTER USING 30 each 3 025 Active D3-1000 25 MCG (1000 UT) capsule TAKE 1 CAPSULE BY MOUTH EVERY MORNING 90 capsule 3 025 Active Aspirin Low Dose 81 MG EC tablet TAKE 1 TABLET BY MOUTH EVERY EVENING 90 tablet 3 025 Active hydroCHLOROthiazi de (HYDRODiuril) 25 MG tablet TAKE 1 TABLET BY MOUTH EVERY MORNING 90 tablet 3 025 Active metoprolol succinate XL (Toprol-XL) 50 MG 24 hr tablet TAKE 1 TABLET BY MOUTH EVERY MORNING 30 tablet 7 025 Active albuterol (Ventolin HFA) 108 (90 Base) MCG/ACT inhaler Inhale 2 puffs every 4 (four) hours if needed for wheezing or shortness of breath. 18 g 2 Active benzonatate (Tessalon Perles) 100 MG capsule Take 1 capsule (100 mg) by mouth if needed in the morning, at noon, and at bedtime for cough for up to 10 days. Do not crush or chew. 30 capsule 025 2024 Active cetirizine (ZyrTEC) 10 MG tablet Take 1 tablet (10 mg) by mouth Once per day. 90 tablet 3 025 2025 Active predniSONE (Deltasone) 20 MG tablet Take 3 tabs PO daily x 4 days then take 2 tabs daily x 4 days then take 1 tab daily x 4 days 24 tablet Active albuterol (Ventolin HFA) 108 (90 Base) MCG/ACT inhaler Inhale 2 puffs every 6 (six) hours if needed for wheezing or shortness of breath. 18 g 11 023 2024 Discontinued(R eorder (will not trigger notification to Pharmacy)) cetirizine (ZyrTEC) 10 MG tablet Take 1 tablet (10 mg) by mouth in the morning. 90 tablet 2 023 2024 Discontinued(R eorder (will not trigger notification to Pharmacy)) metoprolol succinate XL (Toprol-XL) 50 MG 24 hr tablet TAKE 1 TABLET BY MOUTH EVERY MORNING 90 tablet 3 024 2024 Discontinued Hospital, Clinic, or Other Facility Administered Medication Ordered Dose Route Frequency Start Date End Date Status ipratropium-albutero l (Duo-Neb) 0.5-2.5 mg/3 mL nebulizer solution 3 mgIndications:Modera te persistent asthma with acute exacerbation 3 mg NEBULIZATION Once 08/12/2025 08/12/2025 Ended predniSONE (Deltasone) tablet 60 mgIndications:Modera te persistent asthma with acute exacerbation 60 mg PO Once 08/12/2025 08/12/2025 Ended Active Problems Problem Noted Date Diagnosed Date Obesity, morbid 01/05/2025 Pre-operative exam 01/05/2025 Assessment & Plan (01/05/2025 6:48 AM EDT): Pt is low risk for a low risk surgery, ok to proceed without further cardiac risk stratification. Moderate persistent asthma without complication 02/15/2023 Assessment & Plan (12/30/2023 9:34 AM EDT): Continue Lele and LUIS MIGUEL Assessment & Plan (02/20/2023 6:28 AM EDT): [...] Encounters Date Type Department Care Team Description 08/12/2025 9:00 AM EDT Office Visit [facility] [address] [place] [phone] Marivel Ramey DO Moderate persistent asthma with acute exacerbation (Primary Dx) 08/12/2025 Orders Only GENERIC EXTERNAL DATA DEPARTMENT Provider, Generic External Data 08/12/2025 Travel 08/06/2025 Telephone [facility] MEDICINE [address] [place] [address] Alicja Cameron MD telephone call 07/31/2025 Refill [facility] [address] [place], [place] [phone] Alicja Cameron MD 07/01/2025 Refill [facility] MED[facility] [address] [place], [place] [phone] Alicja Cameron MD 05/31/2025 Refill [facility] [address] [place] [address] Alicja Cameron MD from Last 3 Months Immunizations Immunization Administration Dates Next Due Influenza injectable quadriv [...] Mass Index 32.88 08/12/2025 8:54 AM EDT Plan of Treatment Upcoming Encounters Date Type Department Care Team (Late st Contact Info) Description 10/08/2025 2:15 PM EST Office Visit [facility] MEDICINE [address] [place] [address] Alicja Cameron MD [address] [place] [address] Health Maintenance Due Date Last Done Comments CT Colonography 1955 Colonoscopy 1955 Colorectal Cancer Screening 1955 FIT DNA/Cologuard 1957 FIT 1957 FOBT 1955 Sigmoidoscopy 1957 Alcohol/Substance Use Screening 1969 RSV Patients and Patients Aged 60 years or older (1 - Risk 60-74 years 1-dose series) 2017 Depression Screening 02/16/2024 02/15/2023, 02/16/20 23 SDOH Screening 04/28/2025 04/28/2024 COVID-19 Vaccine ( season) 2025 05/03/2022, 05/03/2022, 01/01/2022, Additional history exists Influenza Vaccine (#1) 2025 09/25/2018, 2010 Diabetes: Hemoglobin A1C 01/04/2026 025, 01/04/2025, 12/31/2023, Additional history exists Tobacco Screening 08/12/2026 08/12/2025 Lipid Panel 12/30/2028 12/31/2023, 08/21, 10/17/2021, Additional [...] patient's age to complete this topic Meningococcal B Vaccine Aged Out No l onger eligible based on patient's age to complete [...] Procedure Name Priority Date/Time Associated Diagnosis Comments XR CHEST 2 VIEWS Routine 08/12/2025 10:4 0 AM EDT COVID-19 ID NOW (COLÓN) Routine 08/12/2025 10:28 AM EDT PROTHROMBIN TIME-INR Routine 08/12/2025 10:28 AM EDT HIGH SENSITIVITY TROPONIN I Routine 08/12/2025 10:28 AM EDT NT-PROBNP Routine 08/12/2025 10:28 AM EDT MAGNESIUM Routine 08/12/2025 10:28 AM EDT HEPATIC FUNCTION PANEL Routine 08/12/2025 10:28 AM EDT COMPREHENSIVE METABOLIC PANEL Routine 08/12/2025 10:28 AM EDT CBC WITH AUTO DIFFERENTIAL Routine 08/12/2025 10:28 AM EDT INFLUENZA A B2 ID NOW (COLÓN) Routine 08/12/2025 10:28 AM EDT POCT GLYCATED HEMOGLOBIN, TOTAL Routine 01/04/2025 3:04 PM EDT Prediabetes HEPATITIS C ANTIBODY Routine 12/31/2023 8:40 AM EDT Essential hypertension LIPID PANEL, STANDARD Routine 12/31/2023 8:40 AM EDT Essential hypertension from Last 3 Months or Most Recently Relevant to Health Maintenance Results * XR Chest 2 Views (08/12/2025 10:40 AM EDT) Anatomical Region Laterality Modality Chest Radiographic Katiuska ging 08/12/2025 10:4 0 AM EDT Narrative 08/12/2025 10:52 AM EDT [address] [place] [address] XRay Report Signed Patient: Bijan Powers MR#: [id number] : 1955 Acct:[id number] Age/Sex: 69 / M ADM Date: 08/12/25 Loc: HO.ED Attending Dr: Ordering Physician: Mindy Pérez NP Date of Service: 08/12/25 Procedure(s): XR chest 2V Accession Number(s): [id number] cc: Alicja Cameron; Mindy Pérez NP Reason for Exam: chest pain, cough 1 mo EXAMINATION: XR CHEST CLINICAL INFORMATION: chest pain, cough 1 mo COMPARISON: October 21, 2018. TECHNIQUE: PA and lateral views FINDINGS: No hyperinflation. No consolidation, pleural effusion or pneumothorax. Cardiomediastinal silhouette size is normal. Tortuosity, thoracic aorta. Multilevel cervical thoracic and upper lumbar spondylosis. Degenerative changes in the right shoulder with questionable soft tissue calcifications inferior to the glenohumeral joint. XR/XR chest 2V IMPRESSION: No acute airspace disease. 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 Electronically signed by: Derick Hodge MD 08/12/2025 10:49 AM EDT Dictated By: Derick Bean MD Signed By: <Electronically signed by Derick Minor MD in OV> 08/12/25 1049 DD/ 1040 TD/TT: 08/12/25 1045 Revenue Investigator: Procedure Note Donotuseinterpreter, Image - 08/12/[address] [address] XRay Report Signed Patient: Bijan Powers MMR#: [id number] : 1955cct:[id number] Age/Sex: 69 / MADM Date: 08/12/25 Loc: HO.ED Attending Dr: Ordering Physician: Mindy Pérez NP Date of Service: 08/12/25 Procedure(s): XR chest 2V Accession Number(s): [id number] cc: Alicja Cameron; Mindy Pérez NP Reason for Exam: chest pain, cough 1 mo EXAMINATION: XR CHEST CLINICAL INFORMATION: chest pain, cough 1 mo COMPARISON: October 21, 2018. TECHNIQUE: PA and lateral views FINDINGS: No hyperinflation. No consolidation, pleural effusion or pneumothorax. Cardiomediastinal silhouette size is normal. Tortuosity, thoracic aorta. Multilevel cervical thoracic and upper lumbar spondylosis. Degenerative changes in the right shoulder with questionable soft tissue calcifications inferior to the glenohumeral joint. XR/XR chest 2V IMPRESSION: No acute airspace disease. 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 Electronically signed by: Derick Hodge MD 08/12/2025 10:49 AM EDT RP Dictated By: Derick Bean MD Signed By: <Electronically signed by Derick Minor MDin OV> 08/12/25 1049 DD/ 1040 TD/TT: 08/12/25 1045 Revenue Investigator: [facility] External Provider IMG XR PROCEDURES Edited Result - Final * Influenza A B2 ID NOW (Colón) (08/12/2025 10:28 AM EDT) IDNOW SERIAL# [id number] [facility] Influenza A Negative Negative [facility] Influenza B2 Negative Negative [facility] Influenza A B2 Note See Note [facility] Comment:The Colón ID NOW In fluenza A B2 test is used for thequalitative detection of influenza A and B from patientswith signs and symptoms of respiratory infection.Negative results do not preclude influenza virus infectionand should not be used as the sole basis for diagnosis,treatment or other patient management decisions.There is a risk of false negative results due to thepresence of variants in the viral targets of the assay, lowlevels of virus in the specimen and co- infection withRespiratory Syncytial Virus. 08/12/2025 10:2 8 AM EDT 08/12/2025 10:34 AM EDT us Generic External Data Provider LAB MICROBIOLOGY - GENERAL ORDERABLES Final Result Performing Organization Address [facility]/ZIP Co de Phone Number [facility] [address] [place] [phone] * COVID-19 ID NOW (COLÓN) (08/12/2025 10:28 AM EDT) IDNOW SERIAL# [id number] [facility] COVID-19 TEST Negative Negative [facility] COVID-19 NOTE See Note [facility] Comment: Results are for the identification of SARS-CoV2 RNA. TheSARS-CoV2 RNA is generally detectable in respiratory samplesduring the acute phase of infection. Positive results areindicative of the presence of SARS-CoV-2 RNA; clinicalcorrelation with patient history and other diagnosticinformation is necessary to determine patient infectionstatus. Positive results do not rule out bacterial infectionor co- infection with other viruses.Testing facilities within the [facility] and [facility] are required to report all positive results tothe appropriate public health authorities.Negative results should be treated as presumptive and, ifinconsistent with clinical signs and symptoms or necessaryfor patient management, should be tested with differentauthorized or cleared molecular tests. Negative results donot preclude SARS-CoV2 RNA infection and should not be usedas the sole basis for patient management decisions. Negativeresults should be considered in the context of a patient'srecent exposures, history and the presence of clinical signsand symptoms consistent with COVID-19.This test has been authorized by the FDA under an EmergencyUse Authorization (EUA) for use by authorized laboratories.Testing performed on the Colón ID NOW utilizing NAAT. 08/12/2025 10:2 8 AM EDT 08/12/2025 10:34 AM EDT us Generic External Data Provider LAB MOLECULAR SHAYY GNOSTICS ORDERABLES Final Result Performing Organization Address City/[facility]/ZIP Co de Phone Number [facility] [address] [place] [phone] * High Sensitivity Troponin I (08/12/2025 10:28 AM EDT) [facility] TROPONIN I HIGH SENSITIVITY <2.7 <3.5 - 35.0 ng/L [facility] Comment:The Colón high sens itivity Troponin-I results should beused in conjunction with other diagnostic information suchas ECG, clinical observations and information, and patientsymptoms to aid in the diagnosis of MT. 08/12/2025 10:2 8 AM EDT 08/12/2025 10:31 AM EDT Generic External Data Provider LAB BLOOD ORDERAB LES Final Result Performing Organization Address [facility] Co de Phone Number [facility] [address] [place] [phone] * NT-proBNP (08/12/2025 10:28 AM EDT) [facility] NT-proBNP 17.8 <300 pg/mL [facility] Comment:Reference Range:Age Group (years) NT-proBNP (pg/ml) InterpretationAll <300 Negative: HF unlikelyFor patients presenting to the ED with clinical suspicion ofnew onset or worsening HF, see below:18 to <50 >299.9 to <450.0 [place]: [id number] to 75 >299.9 to <900.0 other causes of>75 >299.9 to <1800.0 NT-proBNP exsddnlaa49 to <50 >449.9 Positive: HF -41 >899.9>75 >1799.9Note: Elevated NT-proBNP levels should be interpreted inthe context of other clinical information. 08/12/2025 10:2 8 AM EDT 08/12/2025 10:31 AM EDT Generic External Data Provider LAB BLOOD ORDERAB LES Final Result Performing Organization Address [facility]/ZIP Co de Phone Number [facility] [address] [place] [phone] * (ABNORMAL) CBC auto differential (08/12/2025 10:28 AM EDT) White Blood Count 8.6 4.8 - 10.8 X10*3/uL [facility] Red Blood Count 4.87 4.60 - 5.80 X10*6/uL [facility] Hemoglobin 15.2 14.0 - 18.0 g/dl [facility] Hematocrit 45.4 42.0 - 52.0 % [facility] Mean Corpuscular Volume 93.2 80.0 - 98.0 fL [facility] Mean Corpuscular Hemoglobin 31.2 27.0 - 33.0 pg [facility] Mean Corpuscular HGB Conc 33.5 31.0 - 36.0 g/dl [facility] Red Cell Distribution Width 12.0 11.0 - 16.0 % [facility] Platelet Count 211 160 - 400 X10*3/uL [facility] Mean Platelet Volume 9.2(L) 9.4 - 12.4 fL [facility] Neutrophils Percent Auto 60.4 45 - 73 % [facility] Imm Gran Pct Auto 0.2 0.0 - 0.4 % [facility] Lymphocytes Percent Auto 24.5 20 - 40 % [facility] Monocytes Percent Auto 7.9 2 - 11 % [facility] Eosinophils Percent Auto 6.2(H) 0 - 4 % [facility] Basophils Percent Auto 0.8 0 - 2 % [facility] NRBC Pct Auto 0.0 0.0 - 0.2 /100WBC [facility] Neutrophils Absolute Auto 5.2 2.0 - 8.3 x10*3/uL [facility] Imm Gran Abs Auto 0.02 0.00 - 0.03 X10*3/uL [facility] Lymphocytes Absolute Auto 2.1 1.2 - 4.9 X10*3/uL [facility] Monocytes Absolute Auto 0.7 0.1 - 1.2 X10*3/uL [facility] Eosinophils Absolute Auto 0.5(H) 0.0 - 0.4 X10*3/uL [facility] Basophils Absolute Auto 0.1 0.0 - 0.2 X10*3/uL [facility] NRBC Abs Auto 0.000 0.0 - 0.012 X10*3/uL [facility] 08/12/2025 10:2 8 AM EDT 08/12/2025 10:31 AM EDT Generic External Data Provider LAB BLOOD ORDERAB LES Final Result Performing Organization Address City/[facility]/ZIP Co de Phone Number [facility] [address] [place] [phone] * Prothrombin Time-INR (08/12/2025 10:28 AM EDT) Prothrombin Time 12.1 10.9 - 12.4 SEC [facility] INTERNATIONAL NORM RATIO 1.1 0.9 - 1.1 [facility] Comment:INTERNATIONAL NORMAL IZED RATIO (INR) REFERENCE RANGES Reference RangeFor patients not on anticoagulant therapy: 0.9 - 1.1INR ranges for oral anticoagulanttherapy:For prevention and treatment of venous thrombosis and pulmonary embolism: 2.0 - 3.0For acute myocardial infarction with aspirin therapy: 2.0 - 3.0For acute myocardial infarction without aspirin therapy: 3.0 - 4.0For patients with mechanical prosthetic heart valves: 2.5 - 3.5 08/12/2025 10:2 8 AM EDT 08/12/2025 10:31 AM EDT Generic External Data Provider LAB BLOOD ORDERAB LES Final Result Performing Organization Address [facility] Co de Phone Number [facility] [address] [place] [phone] * Magnesium (08/12/2025 10:28 AM EDT) Magnesium 2.0 1.6 - 2.6 mg/dL [facility] 08/12/2025 10:2 8 AM EDT 08/12/2025 10:31 AM EDT us Generic External Data Provider LAB BLOOD ORDERAB LES Final Result Performing Organization Address City/[facility] Co de Phone Number [facility] [address] [place] [phone] * Hepatic Function Panel (08/12/2025 10:28 AM EDT) Bilirubin, Direct 0.2 0.0 - 0.5 mg/dL [facility] 08/12/2025 10:2 8 AM EDT 08/12/2025 10:31 AM EDT Generic External Data Provider LAB BLOOD ORDERAB LES Final Result Performing Organization Address [facility] de Phone Number [facility] [address] [place] [phone] * (ABNORMAL) Comprehensive Metabolic Panel (08/12/2025 10:28 AM EDT) Sodium 139 135 - 145 mmol/L [facility] Potassium 4.5 3.3 - 5.1 mmol/L [facility] Chloride 109(H) 96 - 108 mmol/L [facility] Carbon Dioxide 26 22 - 29 mmol/L [facility] Anion Gap 9(L) 12 - 20 [facility] Urea Nitrogen (BUN) 11 9 - 16 mg/dL [facility] Creatinine, Serum 0.76 0.5 - 1.4 mg/dL [facility] Creatinine Clr Calc Pharmacy 95.7 [facility] Comment:eGFR (calculated fro m the MDRD study equation) and eCrCl(calculated from the Cockcroft-Gault equation) are based ondifferent parameters and may not yield comparable results.If eCrCl result is absurd, please check patient'sheight/weight. Estimated Glomerular Filt Rate >60 [facility] Comment:Chronic Kidney Disea se: Estimated GFR < 60 mL/min/1.13y3Sryqve Kidney Disease: Estimated GFR < 15 mL/min/1.73m2 Glucose 101 60 - 115 mg/dL [facility] Calcium 9.3 8.4 - 10.2 mg/dL [facility] Bilirubin, Total 0.6 0.0 - 1.0 mg/dL [facility] Aspartate Amino Transferase 23 5 - 37 U/L [facility] Alanine Aminotransferase 30 0 - 40 U/L [facility] Total Protein 7.7 6.5 - 8.0 g/dL [facility] Albumin Level 4.4 3.5 - 5.0 g/dL [facility] Alkaline Phosphatase 61 39 - 117 U/L [facility] 08/12/2025 10:2 8 AM EDT 08/12/2025 10:31 AM EDT Generic External Data Provider LAB BLOOD ORDERAB LES Final Result Performing Organization Address [facility] de Phone Number [facility] [address] [place] [phone] * POCT HGB A1C (01/04/2025 3:04 PM EDT) Hemoglobin A1C 6.0 4.0 - 6.0 % QC Media Lot # [id number] Lot# Expiration Date Blood 01/04/2025 3:04 PM EDT Alicja Cameron MD POINT OF CARE TEST ENTER/EDIT ORDERABLES Final Result * Hepatitis C Ab (12/31/2023 8:40 AM EDT) Hepatitis C Antibody Nonreactive Nonreactive [facility] Comment:Antibodies to HCV no t detected; does not exclude early acuteHCV infection. Blood Venous blood specimen / Unknown 12/31/2023 8:40 AM EDT 12/31/2023 11:18 AM EDT Alicja Cameron MD LAB BLOOD ORDERABLES Final Res ult Performing Organization Address City/State/[facility] Co de Phone Number [facility] [address] [place] [phone] * (ABNORMAL) Lipid Panel, Standard (12/31/2023 8:40 AM EDT) Triglycerides 200(H) <150 mg/dL [facility] Comment:Desirable Triglyceri de: less than 150 mg/dLBorderline High Triglyceride 150-199 mg/dLHigh Triglyceride: 200-499 mg/dLVery High Triglyceride: greater than or equal to 5OO mg/dL Cholesterol 131 <200 mg/dL [facility] Comment:Desirable Cholestero l: less than 200 mg/dLBorderline High Cholesterol: 200-239 mg/dLHigh Cholesterol: greater than 239 mg/dL LDL Cholesterol Calculated 52 <100 mg/dL [facility] Comment:Desirable LDL: less than 100 mg/dLNear Optimal/Above Optimal LDL: 110- 129 mg/dLBorderline High LDL: 130-159 mg/dLHigh LDL: 160-189 mg/dLVery High LDL: greater than or equal to 190 mg/dL HDL Cholesterol 39(L) >40 mg/dL [facility] Comment:Desirable HDL: great er than 40 mg/dL Note: This HDL assay may give artificially low results in patients with liver disease. Blood Venous blood specimen / Unknown 12/31/2023 8:40 AM EDT 12/31/2023 11:18 AM EDT us Alicja Cameron MD LAB BLOOD ORDERABLES Final Res ult Performing Organization Address [facility]/ZIP Co de Phone Number [facility] [address] [place] [phone] from Last 3 Months or Most Recently Relevant to Health Maintenance Insurance MEDICARE [facility] STANDARD Care Teams Plaster Machine Operator Relationship Specialty Start Date End Date Alicja Cameron MD [address] [place] [phone] PCP - General Family Medicine 10/05/20
--- OUTSIDE RECORDS SUMMARY | 2025-08-12 14:56 | XMS_ITS | Encounter Summary ---
Author Organization [employer] Address [address] [facility] 7t [place] [address] Care Team Providers Care White Mixing Operator Name Role Phone Alicja Cameron MD Primary Care Provider [phone] Reason for Visit * Reason Comments Med Refill Encounter Details Date Type Department Care Team ([facility] st Contact Info) Description 06/07/2024 Refill [facility] [address] [place], [place] [phone] Alcija Cameron MD [address] [place], [place] [phone] Social History Tobacco Use Types Packs/Day Years [...] as of this encounter Plan of Treatment Upcoming Encounters Date Type Department Care Team (Late st Contact Info) Description 10/08/2025 2:15 PM EST Office Visit [facility] [address] [place] [phone] Alicja Cameron MD [address] [place] [phone] documented as of this encounter Visit Diagnoses Not on filedocumented in this encounter Additional Health Concerns Assessment Noted Time PHQ-9 Depression Total Score: 0 02/16/20 23 4:18 PM EDT documented as of this encounter Care Teams White Mixing Operator Relationship Specialty Start Date End Date Alicja Cameron MD [address] [place] [address] [phone] PCP - General Family Medicine 10/05/20 documented as of this encounter
--- OUTSIDE RECORDS SUMMARY | 2025-08-12 14:56 | XMS_ITS | Encounter Summary ---
Author Organization [employer] Address [address] [facility] [address] [place] [address] Care Team Providers Care Kiln Furniture Caster Name Role Phone Alicja Cameron MD Primary Care Provider [phone] Encounter Details Date Type Department Care Team (Latest Contact Info) Description 08/12/2025 Travel Social History Tobacco Use Types Packs/Day Years Used Date Smoking Tobacco: Never Smokeless Tobacco: Never Alcohol Use Standard Drinks/Week Comments Never 0 (1 standard drink = 0.6 oz pur e alcohol) Depression Answer Date Recorded Patient Health Questionnaire-9 Score 0 02/15/2023 Housing Stability Answer Date Recorded What is your housing situation today? I have katerina ree 04/28/[address] you li [...] 2:15 PM EST Office Visit [facility] [address] [place] [phone] Alicja Cameron MD [address] [place] [phone] documented as of this encounter Visit Diagnoses Not on filedocumented in this encounter Additional Health Concerns Assessment Noted Time PHQ-9 Depression Total Score: 0 02/16/20 23 4:18 PM EDT documented as of this encounter Care Teams Kiln Furniture Caster Relationship Specialty Start Date End Date Alicja Cameron MD [address] [place] [address] [phone] PCP - General Family Medicine 10/05/20 documented as of this encounter
--- OUTSIDE RECORDS SUMMARY | 2025-08-12 14:56 | XMS_ITS | Encounter Summary ---
Author Organization [employer] Address [address] [facility] [address] 7[address] [place] [address] Care Team Providers Care Aircraft Maintenance Technician Name Role Phone Alicja Cameron MD Primary Care Provider [phone] Encounter Details Date Type Department Care Team ([facility] st Contact Info) Description 08/12/2025 Orders Only GENERIC EXTERNAL DATA DEPARTMENT Provider, Generic External Data Social History Tobacco Use Types Packs/Day Years [...] Description 10/08/2025 2:15 PM EST Office Visit [facility] MEDICINE [address] [place] [phone] Alicja Cameron MD [address] [place] [address] documented as of this encounter Procedures Procedure Name Priority Date/Time Associated Diagnosis Comments XR CHEST 2 VIEWS Routine 08/12/2025 10:4 0 AM EDT INFLUENZA A B2 ID NOW (COLÓN) Routine 08/12/2025 10:28 AM EDT COVID-19 ID NOW (COLÓN) Routine 08/12/2025 10:28 AM EDT HIGH SENSITIVITY TROPONIN I Routine 08/12/2025 10:28 AM EDT NT-PROBNP Routine 08/12/2025 10:28 AM EDT CBC WITH AUTO DIFFERENTIAL Routine 08/12/2025 10:28 AM EDT PROTHROMBIN TIME-INR Routine 08/12/2025 10:28 AM EDT MAGNESIUM Routine 08/12/2025 10:28 AM EDT HEPATIC FUNCTION PANEL Routine 10:28 AM EDT COMPREHENSIVE METABOLIC PANEL Routine 08/12/2025 10:28 AM EDT documented in this encounter Results * XR Chest 2 Views (08/12/2025 10:40 AM EDT) Anatomical Region Laterality Modality Chest Radiographic Katiuska ging 08/12/2025 10:4 0 AM EDT Narrative 08/12/2025 10:52 AM EDT [address] [address] XRay Report Signed Patient: Bijan Powers MR#: [id number] [id number] : 1955 Acct:[id number] Age/Sex: 69 / M ADM Date: 08/12/25 Loc: HO.ED Attending Dr: Ordering Physician: Mindy Pérez NP Date of Service: 08/12/25 Procedure(s): XR chest 2V Accession Number(s): [id number] cc: Alicja Cameron; Mindy Pérez NP Reason [...] 08/12/25 1049 DD/ 1040 TD/TT: 08/12/25 1045 Glue Clamp Operator: Procedure Note Donotuseinterpreter, Image - 08/12/[address] [address] XRay Report Signed Patient: Bijan Powers MMR#: Severiano [id number] : 1955cct:[id number] Age/Sex: 69 / MADM Date: 08/12/25 Loc: HO.ED Attending Dr: Ordering Physician: Mindy Pérez NP Date of Service: 08/12/25 Procedure(s): XR chest 2V Accession Number(s): [id number] cc: Alicja Cameron; Mindy Pérez NP Reason [...] 08/12/25 1049 DD/ 1040 TD/TT: 08/12/25 1045 Glue Clamp Operator: [facility] External Provider IMG XR PROCEDURES Edited Result - Final * COVID-19 ID NOW (COLÓN) (08/12/2025 10:28 AM EDT) IDNOW SERIAL# [id number] [facility] COVID-19 TEST Negative Negative [facility] COVID-19 NOTE See Note [facility] Comment: Results are for the identification of SARS-CoV2 RNA. TheSARS-CoV2 RNA is generally detectable in respiratory samplesduring the acute phase of infection. Positive results areindicative of the presence of SARS-CoV-2 RNA; clinicalcorrelation with patient history and other diagnosticinformation is necessary to determine patient infectionstatus. Positive results do not rule out bacterial infectionor co- infection with other viruses.Testing facilities within the [place] and itsterritories are required to report all positive results [...] 8 AM EDT 08/12/2025 10:34 AM EDT Generic External Data Provider LAB MOLECULAR SHAYY GNOSTICS ORDERABLES Final Result [facility] [address] [place] [phone] * Influenza A B2 ID NOW (RaftOut) (08/12/2025 10:28 AM EDT) IDNOW SERIAL# [id number] [facility] Influenza A Negative Negative [facility] Influenza B2 Negative Negative [facility] Influenza A B2 Note See Note [facility] Comment:The [place] ID NOW In fluenza [...] 8 AM EDT 08/12/2025 10:34 AM EDT Generic External Data Provider LAB MICROBIOLOGY - GENERAL ORDERABLES Final Result Performing Organization Address [facility] de Phone Number [facility] [address] [place] [phone] * Prothrombin Time-INR (08/12/2025 10:28 AM EDT) Prothrombin Time 12.1 10.9 - 12.4 SEC [facility] INTERNATIONAL NORM RATIO 1.1 0.9 - 1.1 [facility] Comment:INTERNATIONAL NORMAL IZED RATIO (INR) REFERENCE [...] ORDERAB LES Final Result Performing Organization Address [facility] de Phone Number [facility] [address] [place] [phone] * High Sensitivity Troponin I (08/12/2025 10:28 AM EDT) Pathologist [facility] TROPONIN I HIGH SENSITIVITY <2.7 <3.5 - 35.0 ng/L [facility] Comment:The [place] high sens itivity Troponin-I results should beused in conjunction with other diagnostic information suchas ECG, clinical observations and information, and patientsymptoms to aid in the diagnosis of CT. 08/12/2025 10:2 8 AM EDT 08/12/2025 10:31 AM EDT Generic External Data Provider LAB BLOOD ORDERAB LES Final Result Performing Organization Address [facility] Co de Phone Number [facility] [address] [place] [phone] * NT-proBNP (08/12/2025 10:28 AM EDT) NT-proBNP 17.8 <300 pg/mL [facility] Comment:Reference Range:Age Group (years) NT-proBNP (pg/ml) InterpretationAll <300 Negative: HF unlikelyFor patients presenting to the ED with clinical suspicion ofnew onset or worsening HF, see below:18 to <50 >299.9 to <450.0 Grayzone: [id number] to 75 >299.9 to <900.0 other causes of>75 >299.9 to <1800.0 NT-proBNP toaidntoj73 to <50 >449.9 Positive: HF [id number] >899.9>75 >1799.9Note: Elevated NT-proBNP levels should be interpreted inthe context of other clinical information. 08/12/2025 10:2 8 AM EDT 08/12/2025 10:31 AM EDT us Generic External Data Provider LAB BLOOD ORDERAB LES Final Result Performing Organization Address [facility] Co de Phone Number [facility] [address] [place] [phone] * Magnesium (08/12/2025 10:28 AM EDT) Magnesium 2.0 1.6 - 2.6 mg/dL [facility] 08/12/2025 10:2 8 AM EDT 08/12/2025 10:31 AM EDT us Generic External Data Provider LAB BLOOD ORDERAB LES Final Result Performing Organization Address [facility] Co de Phone Number [facility] [address] [place] [phone] * Hepatic Function Panel (08/12/2025 10:28 AM EDT) Bilirubin, Direct 0.2 0.0 - 0.5 mg/dL [facility] 08/12/2025 10:2 8 AM EDT 08/12/2025 10:31 AM EDT us Generic External Data Provider LAB BLOOD ORDERAB LES Final Result [facility] [address] [place], [place] [phone] * (ABNORMAL) Comprehensive Metabolic Panel (08/12/2025 10:28 AM EDT) Sodium 139 135 - 145 mmol/L [facility] Potassium 4.5 3.3 - 5.1 mmol/L [facility] Chloride 109(H) 96 - 108 mmol/L [facility] Carbon Dioxide 26 22 - 29 mmol/L [facility] Anion Gap 9(L) 12 - 20 [facility] Urea Nitrogen (BUN) 11 9 - 16 mg/dL [facility] Creatinine, Serum 0.76 0.5 - 1.4 mg/dL [facility] Creatinine Clr Calc Pharmacy 95.7 [facility] Comment:eGFR (calculated fro m the MDRD study equation) and eCrCl(calculated from the Cockcroft-Gault equation) are based ondifferent parameters and may not yield comparable results.If eCrCl result is absurd, please check patient'sheight/weight. Estimated Glomerular Filt Rate >60 [facility] Comment:Chronic Kidney Disea se: Estimated GFR < 60 mL/min/[id number] Kidney Disease: Estimated GFR < 15 mL/min/1.73m2 Glucose 101 60 - 115 mg/dL [facility] Calcium 9.3 8.4 - 10.2 mg/dL [facility] Bilirubin, Total 0.6 0.0 - 1.0 mg/dL [facility] Aspartate Amino Transferase 23 5 - 37 U/L [facility] Alanine Aminotransferase 30 0 - 40 U/L [facility] Total Protein 7.7 6.5 - 8.0 g/dL [facility] Albumin Level 4.4 3.5 - 5.0 g/dL [facility] Alkaline Phosphatase 61 39 - 117 U/L [facility] 08/12/2025 10:2 8 AM EDT 08/12/2025 10:31 AM EDT us Generic External Data Provider LAB BLOOD ORDERAB LES Final Result [facility] [address] [place] [phone] * (ABNORMAL) CBC auto differential (08/12/2025 10:28 AM EDT) White Blood Count 8.6 4.8 - 10.8 X10*3/uL [facility] Red Blood Count 4.87 4.60 - 5.80 X10*6/uL [facility] Hemoglobin 15.2 14.0 - 18.0 g/dl [facility] Hematocrit 45.4 42.0 - 52.0 % [facility] Mean Corpuscular Volume 93.2 80.0 - 98.0 fL [facility] Mean Corpuscular Hemoglobin 31.2 27.0 - 33.0 pg [facility] Mean Corpuscular HGB Conc 33.5 31.0 - 36.0 g/dl [facility] Red Cell Distribution Width 12.0 11.0 - 16.0 % [facility] Platelet Count 211 160 - 400 X10*3/uL [facility] Mean Platelet Volume 9.2(L) 9.4 - 12.4 fL [facility] Neutrophils Percent Auto 60.4 45 - 73 % [facility] Imm Gran Pct Auto 0.2 0.0 - 0.4 % [facility] Lymphocytes Percent Auto 24.5 20 - 40 % [facility] Monocytes Percent Auto 7.9 2 - 11 % [facility] Eosinophils Percent Auto 6.2(H) 0 - 4 % [facility] Basophils Percent Auto 0.8 0 - 2 % [facility] NRBC Pct Auto 0.0 0.0 - 0.2 /100WBC [facility] Neutrophils Absolute Auto 5.2 2.0 - 8.3 x10*3/uL [facility] Imm Gran Abs Auto 0.02 0.00 - 0.03 X10*3/uL [facility] Lymphocytes Absolute Auto 2.1 1.2 - 4.9 X10*3/uL [facility] Monocytes Absolute Auto 0.7 0.1 - 1.2 X10*3/uL [facility] Eosinophils Absolute Auto 0.5(H) 0.0 - 0.4 X10*3/uL [facility] Basophils Absolute Auto 0.1 0.0 - 0.2 X10*3/uL [facility] NRBC Abs Auto 0.000 0.0 - 0.012 X10*3/uL [facility] 08/12/2025 10:2 8 AM EDT 08/12/2025 10:31 AM EDT us Generic External Data Provider LAB BLOOD ORDERAB LES Final Result [facility] [address] [place] [phone] documented in this encounter Visit Diagnoses Not on filedocumented in this encounter Additional Health Concerns Assessment Noted Time PHQ-9 Depression Total Score: 0 02/16/20 23 4:18 PM EDT documented as of this encounter Care Teams Aircraft Maintenance Technician Relationship Specialty Start Date End Date Alicja Camerno MD [address] [place] [phone] PCP - General Family Medicine 10/05/20 documented as of this encounter
== END 2025-08-12 13:13 | disposition home or self-care (01) ==
PROVIDERS: Physician Assistant Medical; Registered Nurse Emergency; Emergency Provider Emergency Medicine; PCP General Practice
DX: J45.901 Unspecified asthma with (acute) exacerbation (principal); M94.0 Chondrocostal junction syndrome [Tietze]; R07.89 Other chest pain; R06.02 Shortness of breath; R05.9 Cough, unspecified; Z79.899 Other long term (current) drug therapy; Z11.52 Encounter for screening for COVID-19
CPT/HCPCS: 36415; 71046; 80053; 82248; 83735; 83880; 84484; 85025; 85610; 87502; 87635; 93005; 94640; 96374; 99284; J2919

== ENCOUNTER → 2025-08-12 10:06 | Outpatient (BNV) | payer OTHER, SELFPAY | PROVIDERS: Emergency Provider Emergency Medicine; PCP General Practice; Visit Provider Internal Medicine Cardiovascular Disease | DX: R07.9 Chest pain, unspecified (principal) | CPT/HCPCS: 93010 ==

== ENCOUNTER → 2025-08-12 10:19 | Outpatient (BNV) | payer OTHER, SELFPAY | PROVIDERS: Emergency Provider Emergency Medicine; PCP General Practice; Visit Provider Radiology Diagnostic Radiology | DX: R05.9 Cough, unspecified (principal); R07.9 Chest pain, unspecified; M19.011 Primary osteoarthritis, right shoulder | CPT/HCPCS: 71046 ==

== ENCOUNTER 2025-08-23 06:38 | Outpatient (REF) | payer OTHER, SELFPAY ==
--- OUTSIDE RECORDS SUMMARY | 2025-08-23 06:41 | XMS_ITS | Encounter Summary ---
Author Organization [employer] Address [address] [facility] [address] [place] [address] Care Team Providers Care Brand Marketing Coordinator Name Role Phone Alicja Cameron MD Primary Care Provider [phone] Reason for Visit * Reason Comments Med Refill Encounter Details Date Type Department Care Team ([facility] st Contact Info) Description 06/07/2024 Refill [facility] [address] [place], [place] [phone] Alicja Cameron MD [address] [place], [place] [phone] Social History Tobacco Use Types Packs/Day Years [...] Description 10/08/2025 2:15 PM EST Office Visit [facility] [address] [place] [phone] Alicja Cameron MD [address] [place] [phone] documented as of this encounter Visit Diagnoses Not on filedocumented in this encounter Additional Health Concerns Assessment Noted Time PHQ-9 Depression Total Score: 0 02/16/20 23 4:18 PM EDT documented as of this encounter Care Teams Brand Marketing Coordinator Relationship Specialty Start Date End Date Alicja Cameron MD [address] [place] [address] [phone] PCP - General Family Medicine 10/05/20 documented as of this encounter
--- OUTSIDE RECORDS SUMMARY | 2025-08-23 06:41 | XMS_ITS | Clinical Summary ---
Author Organization [employer] Address [address] [facility] [address] [place] [address] Care Team Providers Care Medical Corps Officer Name Role Phone Alicja Cameron MD Primary Care Provider [phone] Allergies Active Allergy Reactions Criticality Noted Date [...] shortness of breath. 18 g 2 Active cetirizine (ZyrTEC) 10 MG tablet Take [...] MORNING 90 tablet 3 024 2024 Discontinued benzonatate (Tessalon Perles) 100 MG capsule Take 1 capsule (100 mg) by mouth if needed in the morning, at noon, and at bedtime for cough for up to 10 days. Do not crush or chew. 30 capsule 2024 Hospital, Clinic, or Other Facility Administered Medication [...] & Plan (12/30/2023 9:34 AM EDT): Continue Yinkaibryan and LUIS MIGUEL Assessment & Plan (02/20/2023 [...] Description 08/12/2025 9:00 AM EDT Office Visit [facility] [address] [place] [phone] Marivel Ramey DO Moderate persistent asthma with acute exacerbation (Primary Dx) 08/12/2025 Orders Only GENERIC EXTERNAL DATA DEPARTMENT Provider, Generic External Data 08/12/2025 Travel 08/06/2025 Telephone [facility] MEDICINE [address] [place] [address] Alicja Cameron MD telephone call 07/31/2025 Refill [facility] [address] [place], [place] [phone] Alicja Cameron MD 07/01/2025 Refill [facility] MEDICINE [address] [place], [place] [phone] Alicja Cameron MD 05/31/2025 Refill [facility] MED & PEDS [address] [place] [address] Alicja Cameron MD from Last 3 Months [...] Description 10/08/2025 2:15 PM EST Office Visit [facility] MEDICINE [address] [place] [address] Alicja Cameron MD [address] [place] [address] Health Maintenance Due Date Last Done Comments CT Colonography 1957 Colonoscopy 1957 Colorectal Cancer Screening 1957 FIT DNA/Cologuard 1957 FIT 1957 FOBT 1957 Sigmoidoscopy 1957 Alcohol/Substance Use Screening 1969 RSV Patients and Patients Aged 60 years or older (1 - Risk 60-74 years 1-dose series) 2017 Depression Screening 02/16/2024 02/15/2023, 02/16/20 SDOH Screening 04/28/2025 04/28/2024 COVID-19 Vaccine ( [...] AM EDT Narrative 08/12/2025 10:52 AM EDT [address] [place] [address] XRay Report Signed Patient: Bijan Powers MR#: [id number] : 1955 Acct:[id number] Age/Sex: 69 / M ADM Date: 08/12/25 Loc: HO.ED Attending Dr: Ordering Physician: Mindy Pérez NP Date of Service: 08/12/25 Procedure(s): XR chest 2V Accession Number(s): [id number] cc: Alicja Cameron; Mindy Pérez NP Reason [...] 08/12/25 1049 DD/ 1040 TD/TT: 08/12/25 1045 Digital Media Manager: Procedure Note Donotuseinterpreter, Image - 08/12/[address] [address] XRay Report Signed Patient: Biajn Powers MMR#: Severiano [id number] : 1955cct:[id number] Age/Sex: 69 / MADM Date: 08/12/25 Loc: HO.ED Attending Dr: Ordering Physician: Mindy Pérez NP Date of Service: 08/12/25 Procedure(s): XR chest 2V Accession Number(s): [id number] cc: Alicja Cameron; Mindy Pérez NP Reason [...] 08/12/25 1049 DD/ 1040 TD/TT: 08/12/25 1045 Digital Media Manager: [facility] External Provider IMG XR PROCEDURES Edited Result - Final * Influenza A B2 ID NOW (Colón) (08/12/2025 10:28 AM EDT) IDNOW SERIAL# [id number] [facility] Influenza A Negative Negative [facility] Influenza B2 Negative Negative [facility] Influenza A B2 Note See Note [facility] Comment:The Colón ID NOW In [...] GENERAL ORDERABLES Final Result Performing Organization Address [facility]/ZIP Co de Phone Number [facility] [address] [place] [phone] * COVID-19 ID NOW (COLÓN) (08/12/2025 10:28 AM EDT) IDNOW SERIAL# [id number] [facility] COVID-19 TEST Negative Negative [facility] COVID-19 NOTE See Note [facility] Comment: Results are for the identification of SARS-CoV2 RNA. TheSARS-CoV2 RNA is generally detectable in respiratory samplesduring the acute phase of infection. Positive results areindicative of the presence of SARS-CoV-2 RNA; clinicalcorrelation with patient history and other diagnosticinformation is necessary to determine patient infectionstatus. Positive results do not rule out bacterial infectionor co- infection with other viruses.Testing facilities within the [facility] and [facility] are required to report all positive results [...] GNOSTICS ORDERABLES Final Result Performing Organization Address City/[facility]/ZIP Co de Phone Number [facility] [address] [place] [phone] * High Sensitivity Troponin I (08/12/2025 10:28 AM EDT) [facility] TROPONIN I HIGH SENSITIVITY <2.7 <3.5 - 35.0 ng/L [facility] Comment:The Colón high sens itivity Troponin-I results should beused in conjunction with other diagnostic information suchas ECG, clinical observations and information, and patientsymptoms to aid in the diagnosis of SD. 08/12/2025 10:2 8 AM EDT 08/12/2025 10:31 AM EDT us Generic External Data Provider LAB BLOOD ORDERAB LES Final Result [facility] [address] [place] [address] [phone] * NT-proBNP (08/12/2025 10:28 AM EDT) [facility] NT-proBNP 17.8 <300 pg/mL [facility] Comment:Reference Range:Age Group (years) NT-proBNP (pg/ml) InterpretationAll <300 Negative: HF unlikelyFor patients presenting to the ED with clinical suspicion ofnew onset or worsening HF, see below:18 to <50 >299.9 to <450.0 Grayzone: [id number] to 75 >299.9 to <900.0 other causes of>75 >299.9 to <1800.0 NT-proBNP eofoenfup15 to <50 >449.9 Positive: HF akssvi42-68 >899.9>75 >1799.9Note: Elevated NT-proBNP levels should be interpreted inthe context of other clinical information. 08/12/2025 10:2 8 AM EDT 08/12/2025 10:31 AM EDT us Generic External Data Provider LAB BLOOD ORDERAB LES Final Result Performing Organization Address City/[facility]/ZIP Co de Phone Number [facility] [address] [place] [address] [phone] * (ABNORMAL) CBC auto differential (08/12/2025 10:28 AM EDT) White Blood Count 8.6 4.8 - 10.8 X10*3/uL [facility] Red Blood Count 4.87 4.60 - 5.80 X10*6/uL [facility] Hemoglobin 15.2 14.0 - 18.0 g/dl [facility] Hematocrit 45.4 42.0 - 52.0 % [facility] Mean Corpuscular Volume 93.2 80.0 - 98.0 fL [facility] Mean Corpuscular Hemoglobin 31.2 27.0 - 33.0 pg [facility] Mean Corpuscular HGB Conc 33.5 31.0 - 36.0 g/dl [facility] Red Cell Distribution Width 12.0 11.0 - 16.0 % [facility] Platelet Count 211 160 - 400 X10*3/uL [facility] Mean Platelet Volume 9.2(L) 9.4 - 12.4 fL [facility] Neutrophils Percent Auto 60.4 45 - 73 % [facility] Imm Gran Pct Auto 0.2 0.0 - 0.4 % [facility] Lymphocytes Percent Auto 24.5 20 - 40 % [facility] Monocytes Percent Auto 7.9 2 - 11 % [facility] Eosinophils Percent Auto 6.2(H) 0 - 4 % [facility] Basophils Percent Auto 0.8 0 - 2 % [facility] NRBC Pct Auto 0.0 0.0 - 0.2 /100WBC [facility] Neutrophils Absolute Auto 5.2 2.0 - 8.3 x10*3/uL [facility] Imm Gran Abs Auto 0.02 0.00 - 0.03 X10*3/uL [facility] Lymphocytes Absolute Auto 2.1 1.2 - 4.9 X10*3/uL [facility] Monocytes Absolute Auto 0.7 0.1 - 1.2 X10*3/uL [facility] Eosinophils Absolute Auto 0.5(H) 0.0 - 0.4 X10*3/uL [facility] Basophils Absolute Auto 0.1 0.0 - 0.2 X10*3/uL [facility] NRBC Abs Auto 0.000 0.0 - 0.012 X10*3/uL [facility] 08/12/2025 10:2 8 AM EDT 08/12/2025 10:31 AM EDT Generic External Data Provider LAB BLOOD ORDERAB LES Final Result Performing Organization Address [facility]/ZIP Co de Phone Number [facility] [address] [place] [phone] * Prothrombin Time-INR (08/12/2025 10:28 AM EDT) Prothrombin Time 12.1 10.9 - 12.4 SEC [facility] INTERNATIONAL NORM RATIO 1.1 0.9 - 1.1 [facility] Comment:INTERNATIONAL NORMAL IZED RATIO (INR) [...] ORDERAB LES Final Result Performing Organization Address [facility] Co de Phone Number [facility] [address] [place] [phone] * Magnesium (08/12/2025 10:28 AM EDT) Magnesium 2.0 1.6 - 2.6 mg/dL [facility] 08/12/2025 10:2 8 AM EDT 08/12/2025 10:31 AM EDT us Generic External Data Provider LAB BLOOD ORDERAB LES Final Result Performing Organization Address City/[facility]/ZIP Co de Phone Number [facility] [address] [place] [address] [phone] * Hepatic Function Panel (08/12/2025 10:28 AM EDT) Bilirubin, Direct 0.2 0.0 - 0.5 mg/dL [facility] 08/12/2025 10:2 8 AM EDT 08/12/2025 10:31 AM EDT Generic External Data Provider LAB BLOOD ORDERAB LES Final Result Performing Organization Address [facility] de Phone Number [facility] [address] [place] [phone] * (ABNORMAL) Comprehensive Metabolic Panel (08/12/2025 10:28 AM EDT) Sodium 139 135 - 145 mmol/L [facility] Potassium 4.5 3.3 - 5.1 mmol/L [facility] Chloride 109(H) 96 - 108 mmol/L [facility] Carbon Dioxide 26 22 - 29 mmol/L [facility] Anion Gap 9(L) 12 - 20 [facility] Urea Nitrogen (BUN) 11 9 - 16 mg/dL [facility] Creatinine, Serum 0.76 0.5 - 1.4 mg/dL [facility] Creatinine Clr Calc Pharmacy 95.7 [facility] Comment:eGFR (calculated fro m the MDRD study equation) and eCrCl(calculated from the Cockcroft-Gault equation) are based ondifferent parameters and may not yield comparable results.If eCrCl result is absurd, please check patient'sheight/weight. Estimated Glomerular Filt Rate >60 [facility] Comment:Chronic Kidney Disea se: Estimated GFR < 60 mL/min/1.31u6Resrpi Kidney Disease: Estimated GFR < 15 mL/min/1.73m2 Glucose 101 60 - 115 mg/dL [facility] Calcium 9.3 8.4 - 10.2 mg/dL [facility] Bilirubin, Total 0.6 0.0 - 1.0 mg/dL [facility] Aspartate Amino Transferase 23 5 - 37 U/L [facility] Alanine Aminotransferase 30 0 - 40 U/L [facility] Total Protein 7.7 6.5 - 8.0 g/dL [facility] Albumin Level 4.4 3.5 - 5.0 g/dL [facility] Alkaline Phosphatase 61 39 - 117 U/L [facility] 08/12/2025 10:2 8 AM EDT 08/12/2025 10:31 AM EDT Generic External Data Provider LAB BLOOD ORDERAB LES Final Result Performing Organization Address [facility]/State/[facility] Co de Phone Number [facility] [address] [place] [phone] * POCT HGB A1C (01/04/2025 3:04 PM EDT) Hemoglobin A1C 6.0 4.0 - 6.0 % QC Media Lot # [id number] Lot# Expiration Date Blood 01/04/2025 3:04 PM EDT Alicja Cameron MD POINT OF CARE TEST ENTER/EDIT ORDERABLES Final Result * Hepatitis C Ab (12/31/2023 8:40 AM EDT) Hepatitis C Antibody Nonreactive Nonreactive [facility] Comment:Antibodies to HCV no t detected; does not exclude early acuteHCV infection. Blood Venous blood specimen / Unknown 12/31/2023 8:40 AM EDT 12/31/2023 11:18 AM EDT Alicja Cameron MD LAB BLOOD ORDERABLES Final Res ult Performing Organization Address City/[facility]/ZIP Co de Phone Number [facility] [address] [place] [phone] [phone] * (ABNORMAL) Lipid Panel, Standard (12/31/2023 8:40 AM EDT) Triglycerides 200(H) <150 mg/dL [facility] Comment:Desirable Triglyceri de: less than 150 mg/dLBorderline High Triglyceride 150-199 mg/dLHigh Triglyceride: 200-499 mg/dLVery High Triglyceride: greater than or equal to 5OO mg/dL Cholesterol 131 <200 mg/dL [facility] Comment:Desirable Cholestero l: less than 200 mg/dLBorderline High Cholesterol: 200-239 mg/dLHigh Cholesterol: greater than 239 mg/dL LDL Cholesterol Calculated 52 <100 mg/dL [facility] Comment:Desirable LDL: less than 100 mg/dLNear Optimal/Above Optimal LDL: 110- 129 mg/dLBorderline High LDL: 130-159 mg/dLHigh LDL: 160-189 mg/dLVery High LDL: greater than or equal to 190 mg/dL HDL Cholesterol 39(L) >40 mg/dL [facility] Comment:Desirable HDL: great er than 40 mg/dL Note: This HDL assay may give artificially low results in patients with liver disease. Blood Venous blood specimen / Unknown 12/31/2023 8:40 AM EDT 12/31/2023 11:18 AM EDT us Alicja Cameron MD LAB BLOOD ORDERABLES Final Res ult Performing Organization Address [facility]/ZIP Co de Phone Number [facility] [address] [place] [address] [phone] from Last 3 Months or Most Recently Relevant to Health Maintenance Insurance [employer] (HMO D-SNP) ONDINA MCNAIR [id number] Care Teams Medical Corps Officer Relationship Specialty Start Date End Date Alicja Cameron MD [address] [place] [phone] PCP - General Family Medicine 10/05/20
[2025-08-23 08:03] LABS: PSA,Total (Free>4and<10) 2.09 ng/mL (0.00-4.00)
== END 2025-08-23 06:39 | disposition home or self-care (01) ==
LOC: HO.LAB 06:38
PROVIDERS: PCP General Practice; Visit Provider Urology
DX: R97.20 Elevated prostate specific antigen [PSA] (principal); Z12.5 Encounter for screening for malignant neoplasm of prostate
CPT/HCPCS: 36415; 84153

== ENCOUNTER 2025-09-01 09:29 | Outpatient (AMB) | payer OTHER, SELFPAY ==
--- NOTE | 2025-09-01 10:05 | A.OFFVIS_ITS ---
Intake Visit Reasons: 1Y PVR/PSA Intake Note: Patient Is Present for PVR/PSA Urology Med: Terazosin, Finasteride Antibiotic Allergy: None Blood Thinner: Aspirin Last PVR: 0 08/23/2025- PSA 2.09 Senior Treasury Analyst Required: Yes Senior Treasury Analyst Language: Sammarinese Accompanied by: Self / Same As Patient Allergies lisinopril (LISINOPRIL) Allergy (Severe, Verified 09/01/25 10:06) ANGIOEDEMA- TONGUE SWELLING HPI Comments Details: Bijan is a pleasant Sammarinese male. He is a patient of Dr. Novoa. He is seen for the following urologic conditions. - lower urinary tract symptoms Sammarinese translation provided in office by qualified medical staff assistant Has been on tamsulosin 0.8 with finasteride 5 mg PSA remains in target Lower urinary tract symptoms Longstanding Current therapy includes tamsulosin 0.8 mg Nocturia x1 Mild hesitancy Complete emptying PSA 05/09 2.3, 03/12 4.6, 01/11 1.3, 08/13 1.6, 09/14 2.1 PFSH Medical History Hypercholesterolemia Chronic back pain Lateral epicondylitis Inflammation of colonic mucosa External hemorrhoids Shoulder arthritis Other obstructive and reflux uropathy Benign prostatic hyperplasia with lower urinary tract symptoms High cholesterol Asthma HTN (hypertension) Surgical History History of surgery Social History Alcohol intake: never Patient Tobacco Use Status: Never used Tobacco Current occupational status: disabled Current occupation: rt handed Review of Systems Const Denies chills and Denies fever(s) Card Reports no additional complaints and Denies syncope Resp Denies cough GI Denies abdominal pain and Denies heartburn Reports as per HPI and Denies change in libido Neuro Denies syncope Psych Denies change in libido Endo Denies change in libido Physical Exam Const General: cooperative, healthy appearing, comfortable and no acute distress Orientation/consciousness: patient oriented x3 HEENT Face and sinus: Yes normal facial exam Mouth: moist mucous membranes Neck Neck: Yes normal visual inspection, Yes full ROM and Yes trachea midline Chest Chest palpation & inspection: normal inspection of the chest Resp Effort & Inspection: normal respiratory effort, able to speak in complete sen tences and no respiratory distress GI Inspection: Yes normal to inspection Back/Spine/Pelvis Cervical Spine: normal cervical lordosis Thoracic/Lumbar Spine: thoracic and lumbar spine normal to inspection Skin General skin exam: no rashes or lesions noted Neuro General: patient oriented x3, gait normal, tone normal and moves all extremities Extrem General: Yes normal to inspection and Yes capillary refill normal Assessment & Plan Assessment & Plan (1) Elevated PSA: Code(s): R97.20 - Elevated prostate specific antigen [PSA] Category: Medical (2) Nocturia more than twice per night: Code(s): R35.1 - Nocturia Category: Medical (3) Benign prostatic hyperplasia with lower urinary tract symptoms: Code(s): N40.1 - Benign prostatic hyperplasia with lower urinary tract symptoms Category: Medical Plan Twelve month follow-up Orders: Orders AMB Post Void Residual by ultrasound Today N40.1 - Benign prostatic hyperplasia with lower urinary tract symptoms Prostate Specific Antigen 12 Months R97.20 - Elevated prostate specific antigen [PSA] Medications: Refilled terazosin 5 mg PO BEDTIME 90 caps 3RF 90 days N40.1 - Benign prostatic hyperplasia with lower urinary tract symptoms, R35.0 - Frequency of micturition, R97.20 - Elevated prostate specific antigen [PSA] finasteride 5 mg PO DAILY 90 tabs 3RF 90 days N40.1 - Benign prostatic hyperplasia with lower urinary tract symptoms Patient Instructions: This note is constructed using voice recognition software. While every effort has been made to ensure accuracy addiction nurse errors may have been included. Imaging studies, laboratory and physical exam results were discussed and reviewed in detail. No major barriers to patient understanding were identified. An opportunity to ask questions regarding the treatment plan was provided. All questions were answered. The patient expressed understanding and agreement with the above treatment plan. The patient is aware they should contact our office by phone for worsening of their current condition or the appearance of new urologic symptoms. Compliance is encouraged with any medications and followup testing that is ordered. It is a privilege to participate in the urologic care of your patient. If you have any questions or concerns regarding treatment for the above conditions, or other urologic issues, please do not hesitate to contact me. The office telephone contact is [phone]. Sincerely, Dr Telly Rubi MD, [facility] - Urology Compassionate Specialist Care for the Genitourinary System Coding Level of Care Code Est Pt Level 4 (08068) Complex EM visit Add On G2211 Diagnoses Elevated PSA R97.20 Nocturia more than twice per night R35.1 Benign prostatic hyperplasia with lower urinary tract symptoms N40.1
--- OUTSIDE RECORDS SUMMARY | 2025-09-01 10:31 | XMS_ITS | Encounter Summary ---
Author Organization [employer] Address [address] [facility] [address] [place] [address] Care Team Providers Care News Content Specialist Name Role Phone Alicja Cameron MD Primary Care Provider [phone] Reason for Visit * Reason Comments Med Refill Encounter Details Date Type Department Care Team ([facility] st Contact Info) Description 08/29/[address] [facility] MED & PEDS [address] [place], [place] [phone] Alicja Cameron MD [address] [place], [place] [phone] Social History Tobacco Use Types Packs/Day Years [...] t he electric, gas, oil or water [employer] threatened to shut off services in your [...] Description 10/08/2025 2:15 PM EST Office Visit [facility] MEDICINE [address] [place] [address] Alicja Cameron MD [address] [place] [address] documented as of this encounter Visit Diagnoses Not on filedocumented in this encounter Additional Health Concerns Assessment Noted Time PHQ-9 Depression Total Score: 0 02/16/20 23 4:18 PM EDT documented as of this encounter Care Teams News Content Specialist Relationship Specialty Start Date End Date Alicja Cameron MD [address] [place] [address] PCP - General Family Medicine 10/05/20 documented as of this encounter
--- OUTSIDE RECORDS SUMMARY | 2025-09-01 10:31 | XMS_ITS | Clinical Summary ---
Author Organization [employer] Address [address] [facility] [address] [place] [address] Care Team Providers Care Terra Cotta Mason Name Role Phone Alicja Cameron MD Primary Care Provider [phone] Allergies Active Allergy Reactions Criticality Noted Date [...] prednisoLONE acetate (Pred-Forte) 1 % ophthalmic suspension Active terazosin (Hytrin) 5 MG capsule Take 5 mg by mouth at bedtime. 024 Active gabapentin (Neurontin) 300 MG capsule TAKE 1 CAPSULE BY MOUTH THREE TIMES DAILY IN THE MORNING, AT NOON, AND AT BEDTIME 270 capsule 3 025 Active D3-1000 25 MCG (1000 [...] or shortness of breath. 18 g 2 025 Active cetirizine (ZyrTEC) 10 MG tablet Take 1 tablet (10 mg) by mouth Once per day. 90 tablet 3 025 2025 Active predniSONE (Deltasone) 20 MG tablet Take 3 tabs PO daily x 4 days then take 2 tabs daily x 4 days then take 1 tab daily x 4 days 24 tablet Active Arnuity Ellipta 200 MCG/ACT inhaler INHALE 1 PUFF BY MOUTH EVERY DAY AT THE SAME TIME RINSE MOUTH AFTER USING 30 each 3 Active albuterol (Ventolin HFA) 108 (90 Base) [...] eorder (will not trigger notification to Pharmacy)) Arnuity Ellipta 200 MCG/ACT inhaler INHALE 1 PUFF BY MOUTH EVERY DAY AT THE SAME TIME RINSE MOUTH AFTER USING 30 each 3 025 2024 Discontinued benzonatate (Tessalon Perles) 100 MG [...] & Plan (12/30/2023 9:34 AM EDT): Continue Arniuty and LUIS MIGUEL Assessment & Plan (02/20/2023 [...] Encounters Date Type Department Care Team Description 08/29/2025 Refill [facility] [address] [place] [address] Alicja Cameron MD 08/12/2025 9:00 AM EDT Office Visit [facility] [address] [place], [place] [phone] Marivel Ramey DO Moderate persistent asthma with acute exacerbation (Primary Dx) 08/12/2025 Orders Only GENERIC EXTERNAL DATA DEPARTMENT Provider, Generic External Data 08/12/2025 Travel 08/06/2025 Telephone [facility] [address] [place], [place] [phone] Alicja Cameron MD telephone call 07/31/2025 Refill [facility] [address] [place] [address] Alicja Cameron MD 07/01/2025 Refill [facility] [address] [place], [place] [phone] Alicja Cameron MD from Last 3 Months [...] Description 10/08/2025 2:15 PM EST Office Visit [facility] [address] [place] [phone] Alicja Cameron MD [address] [place] [address] Health Maintenance Due Date Last Done Comments [...] Procedure Name Priority Date/Time Associated Diagnosis Comments PSA, TOTAL WITH REFLEX TO PSA, FREE Routine 08/23/2025 6:47 AM EST XR CHEST 2 VIEWS Routine 08/12/2025 10:4 0 AM EDT COVID-19 ID NOW ([facility]) Routine 08/12/2025 10:28 AM EDT PROTHROMBIN TIME-INR Routine 08/12/2025 10:28 AM EDT HIGH SENSITIVITY TROPONIN I Routine 08/12/2025 10:28 AM EDT NT-PROBNP Routine 08/12/2025 10:28 AM EDT MAGNESIUM Routine 08/12/2025 10:28 AM EDT HEPATIC FUNCTION PANEL Routine 08/12/2025 10:28 AM EDT COMPREHENSIVE METABOLIC PANEL Routine 08/12/2025 10:28 AM EDT CBC WITH AUTO DIFFERENTIAL Routine 08/12/2025 10:28 AM EDT INFLUENZA A B2 ID NOW ([facility]) Routine 08/12/2025 10:28 AM EDT POCT GLYCATED HEMOGLOBIN, TOTAL Routine 01/04/2025 3:04 PM EDT Prediabetes HEPATITIS C ANTIBODY Routine 12/31/2023 8:40 AM EDT Essential hypertension LIPID PANEL, STANDARD Routine 12/31/2023 8:40 AM EDT Essential hypertension from Last 3 Months or Most Recently Relevant to Health Maintenance Results * PSA, Total With Reflex to PSA, Free (08/23/2025 6:47 AM EST) PSA,Total (Free>4and<10) 2.09 0.00 - 4.00 ng/mL [facility] Comment:A Free PSA was not p erformed: The percentage of Free PSA can be used to enhance the differentiation of prostate cancer from benign prostatic disease in subjects whose PSA levels are between 4.0 and 10.0 ng/mL. For subjects whose PSA levels are below 4.0 or above 10.0 ng/mL, the risk of prostate cancer is determined on the basis of the PSA alone. Therefore the % Free PSA is recommended only for those subjects whose PSA levels are between 4.0 and 10.0 ng/mL.PSA methodology: Col[place] Alinity i ChemiluminescentMicroparticle Immunoassay (CMIA) 08/23/2025 6:47 AM EST 08/23/2025 6:47 AM EST us Generic External Data Provider LAB BLOOD ORDERAB LES Final Result Performing Organization Address City/State/[facility] Co de Phone Number [facility] [address] [place] [phone] * XR Chest 2 Views (08/12/2025 10:40 AM EDT) Anatomical Region Laterality Modality Chest Radiographic Katiuska ging 08/12/2025 10:4 0 AM EDT Narrative 08/12/2025 10:52 AM EDT [address] [address] XRay Report Signed Patient: Bijan Powers MR#: [id number] : 1955 Acct:[id number] Age/Sex: 69 / M ADM Date: 08/12/25 Loc: HO.ED Attending Dr: Ordering Physician: Mindy Pérez NP Date of Service: 08/12/25 Procedure(s): XR chest 2V Accession Number(s): [id number] cc: Alicja Cameron; Mindy Pérez NP Reason [...] OV> 08/12/25 1049 DD/ 1040 TD/TT: 08/12/25 104 Information Systems Security Developer: Procedure Note Donotuseinterpreter, Image - 08/12/2025 [place] [address] XRay Report Signed Patient: Bijan Powers MMR#: [id number] : 1955cct:[id number] Age/Sex: 69 / MADM Date: 08/12/25 Loc: .ED Attending Dr: Ordering Physician: Mindy Pérez NP Date of Service: 08/12/25 Procedure(s): XR chest 2V Accession Number(s): [id number] cc: Alicja Cameron; Mindy Pérez NP Reason [...] 08/12/25 1049 DD/ 1040 TD/TT: 08/12/25 1045 Information Systems Security Developer: [facility] External Provider IMG XR PROCEDURES Edited Result - Final * Influenza A B2 ID NOW (Col[place]) (08/12/2025 10:28 AM EDT) IDNOW SERIAL# [id number] [facility] Influenza A Negative Negative [facility] Influenza B2 Negative Negative [facility] Influenza A B2 Note See Note [facility] Comment:The Colón ID NOW In [...] LAB MICROBIOLOGY - GENERAL ORDERABLES Final Result [facility] [address] [place] [phone] * COVID-19 ID NOW (COLÓN) (08/12/2025 10:28 AM EDT) IDNOW SERIAL# [id number] [facility] COVID-19 TEST Negative Negative [facility] COVID-19 NOTE See Note [facility] Comment: Results are for the identification of SARS-CoV2 RNA. TheSARS-CoV2 RNA is generally detectable in respiratory samplesduring the acute phase of infection. Positive results areindicative of the presence of SARS-CoV-2 RNA; clinicalcorrelation with patient history and other diagnosticinformation is necessary to determine patient infectionstatus. Positive results do not rule out bacterial infectionor co- infection with other viruses.Testing facilities within the [facility] are required to report all positive [...] use by authorized laboratories.Testing performed on the [employer] ID NOW utilizing NAAT. 08/12/2025 10:2 8 AM EDT 08/12/2025 10:34 AM EDT [facility] External Data Provider LAB MOLECULAR SHAYY GNOSTICS ORDERABLES Final Result Performing Organization Address City/[facility] Co de Phone Number [facility] [address] [place] [phone] * High Sensitivity Troponin I (08/12/2025 10:28 AM EDT) TROPONIN I HIGH SENSITIVITY <2.7 <3.5 - 35.0 ng/L [facility] Comment:The Col[place] high sens itivity Troponin-I results should beused in conjunction with other diagnostic information suchas ECG, clinical observations and information, and patientsymptoms to aid in the diagnosis of [place]. 08/12/2025 10:2 8 AM EDT 08/12/2025 10:31 AM EDT us Generic External Data Provider LAB BLOOD ORDERAB LES Final Result [facility] [address] [place] [phone] * NT-proBNP (08/12/2025 10:28 AM EDT) [facility] NT-proBNP 17.8 <300 pg/mL [facility] Comment:Reference Range:Age Group (years) NT-proBNP (pg/ml) InterpretationAll <300 Negative: HF unlikelyFor patients presenting to the ED with clinical suspicion ofnew onset or worsening HF, see below:18 to <50 >299.9 to <450.0 Grayzone: [id number] to 75 >299.9 to <900.0 other causes of>75 >299.9 to <1800.0 NT-proBNP [id number] to <50 >449.9 Positive: HF [id number] >899.9>75 >1799.9Note: Elevated NT-proBNP levels should be interpreted inthe context of other clinical information. 08/12/2025 10:2 8 AM EDT 08/12/2025 10:31 AM EDT Generic External Data Provider LAB BLOOD ORDERAB LES Final Result Performing Organization Address [facility] Co de Phone Number [facility] [address] [place] [phone] * (ABNORMAL) CBC auto differential (08/12/2025 10:28 AM EDT) [facility] White Blood Count 8.6 4.8 - 10.8 X10*3/uL [facility] Red Blood Count 4.87 4.60 - 5.80 X10*6/uL [facility] Hemoglobin 15.2 14.0 - 18.0 g/dl [facility] Hematocrit 45.4 42.0 - 52.0 % [facility] Mean Corpuscular Volume 93.2 80.0 - 98.0 fL [facility] Mean Corpuscular Hemoglobin 31.2 27.0 - 33.0 pg [facility] Mean Corpuscular HGB Conc 33.5 31.0 - 36.0 g/dl [facility] Red Cell Distribution Width 12.0 11.0 - 16.0 % [facility] Platelet Count 211 160 - 400 X10*3/uL [facility] Mean Platelet Volume 9.2(L) 9.4 - 12.4 fL [facility] Neutrophils Percent Auto 60.4 45 - 73 % [facility] Imm Gran Pct Auto 0.2 0.0 - 0.4 % [facility] Lymphocytes Percent Auto 24.5 20 - 40 % [facility] Monocytes Percent Auto 7.9 2 - 11 % [facility] Eosinophils Percent Auto 6.2(H) 0 - 4 % [facility] Basophils Percent Auto 0.8 0 - 2 % [facility] NRBC Pct Auto 0.0 0.0 - 0.2 /100WBC [facility] Neutrophils Absolute Auto 5.2 2.0 - 8.3 x10*3/uL [facility] Imm Gran Abs Auto 0.02 0.00 - 0.03 X10*3/uL [facility] Lymphocytes Absolute Auto 2.1 1.2 - 4.9 X10*3/uL [facility] Monocytes Absolute Auto 0.7 0.1 - 1.2 X10*3/uL [facility] Eosinophils Absolute Auto 0.5(H) 0.0 - 0.4 X10*3/uL [facility] Basophils Absolute Auto 0.1 0.0 - 0.2 X10*3/uL [facility] NRBC Abs Auto 0.000 0.0 - 0.012 X10*3/uL [facility] 08/12/2025 10:2 8 AM EDT 08/12/2025 10:31 AM EDT us Generic External Data Provider LAB BLOOD ORDERAB LES Final Result [facility] [address] [place] [phone] * Prothrombin Time-INR (08/12/2025 10:28 AM EDT) Prothrombin Time 12.1 10.9 - 12.4 SEC [facility] INTERNATIONAL NORM RATIO 1.1 0.9 - 1.1 [facility] Comment:INTERNATIONAL NORMAL IZED RATIO (INR) [...] ORDERAB LES Final Result Performing Organization Address [facility] de Phone Number [facility] [address] [place] [phone] * Magnesium (08/12/2025 10:28 AM EDT) [facility] Magnesium 2.0 1.6 - 2.6 mg/dL [facility] 08/12/2025 10:2 8 AM EDT 08/12/2025 10:31 AM EDT Generic External Data Provider LAB BLOOD ORDERAB LES Final Result Performing Organization Address [facility] de Phone Number [facility] [address] [place] [phone] * Hepatic Function Panel (08/12/2025 10:28 AM EDT) Pathologist [facility] Bilirubin, Direct 0.2 0.0 - 0.5 mg/dL [facility] 08/12/2025 10:2 8 AM EDT 08/12/2025 10:31 AM EDT us Generic External Data Provider LAB BLOOD ORDERAB LES Final Result [facility] [address] [place] [phone] * (ABNORMAL) Comprehensive Metabolic Panel (08/12/2025 10:28 AM EDT) Sodium 139 135 - 145 mmol/L [facility] Potassium 4.5 3.3 - 5.1 mmol/L [facility] Chloride 109(H) 96 - 108 mmol/L [facility] Carbon Dioxide 26 22 - 29 mmol/L [facility] Anion Gap 9(L) 12 - 20 [facility] Urea Nitrogen (BUN) 11 9 - 16 mg/dL [facility] Creatinine, Serum 0.76 0.5 - 1.4 mg/dL [facility] Creatinine Clr Calc Pharmacy 95.7 [facility] Comment:eGFR (calculated fro m the MDRD study equation) and eCrCl(calculated from the Cockcroft-Gault equation) are based ondifferent parameters and may not yield comparable results.If eCrCl result is absurd, please check patient'sheight/weight. Estimated Glomerular Filt Rate >60 [facility] Comment:Chronic Kidney Disea se: Estimated GFR < 60 mL/min/1.04s0Ohtlya Kidney Disease: Estimated GFR < 15 mL/min/1.73m2 Glucose 101 60 - 115 mg/dL [facility] Calcium 9.3 8.4 - 10.2 mg/dL [facility] Bilirubin, Total 0.6 0.0 - 1.0 mg/dL [facility] Aspartate Amino Transferase 23 5 - 37 U/L [facility] Alanine Aminotransferase 30 0 - 40 U/L [facility] Total Protein 7.7 6.5 - 8.0 g/dL [facility] Albumin Level 4.4 3.5 - 5.0 g/dL [facility] Alkaline Phosphatase 61 39 - 117 U/L [facility] 08/12/2025 10:2 8 AM EDT 08/12/2025 10:31 AM EDT Generic External Data Provider LAB BLOOD ORDERAB LES Final Result Performing Organization Address [facility]/ZIP Co de Phone Number [facility] [address] [place] [phone] * POCT HGB A1C (01/04/2025 3:04 PM EDT) Pathologist [facility] Hemoglobin A1C 6.0 4.0 - 6.0 % QC Media Lot # [id number] Lot# Expiration Date Blood 01/04/2025 3:04 PM EDT Alicja Cameron MD POINT OF CARE TEST ENTER/EDIT ORDERABLES Final Result * Hepatitis C Ab (12/31/2023 8:40 AM EDT) Pathologist [facility] Hepatitis C Antibody Nonreactive Nonreactive [facility] Comment:Antibodies to HCV no t detected; does not exclude early acuteHCV infection. Blood Venous blood specimen / Unknown 12/31/2023 8:40 AM EDT 12/31/2023 11:18 AM EDT Alicja Cameron MD LAB BLOOD ORDERABLES Final Res ult Performing Organization Address City/[facility]/ZIP Co de Phone Number [facility] [address] [place] [phone] * (ABNORMAL) Lipid Panel, Standard (12/31/2023 8:40 AM EDT) Triglycerides 200(H) <150 mg/dL [facility] Comment:Desirable Triglyceri de: less than 150 mg/dLBorderline High Triglyceride 150-199 mg/dLHigh Triglyceride: 200-499 mg/dLVery High Triglyceride: greater than or equal to 5OO mg/dL Cholesterol 131 <200 mg/dL [facility] Comment:Desirable Cholestero l: less than 200 mg/dLBorderline High Cholesterol: 200-239 mg/dLHigh Cholesterol: greater than 239 mg/dL LDL Cholesterol Calculated 52 <100 mg/dL [facility] Comment:Desirable LDL: less than 100 mg/dLNear Optimal/Above Optimal LDL: 110- 129 mg/dLBorderline High LDL: 130-159 mg/dLHigh LDL: 160-189 mg/dLVery High LDL: greater than or equal to 190 mg/dL HDL Cholesterol 39(L) >40 mg/dL [facility] Comment:Desirable HDL: great er than 40 mg/dL Note: This HDL assay may give artificially low results in patients with liver disease. Blood Venous blood specimen / Unknown 12/31/2023 8:40 AM EDT 12/31/2023 11:18 AM EDT us Alicja Cameron MD LAB BLOOD ORDERABLES Final Res ult [facility] [address] [place] [phone] from Last 3 Months or Most Recently Relevant to Health Maintenance Insurance [facility] DETENTION OPTIONS (O D-SNP) ONDINA MCNAIR [id number] Care Teams Terra Cotta Mason Relationship Specialty Start Date End Date Alicja Cameron MD [address] [place] [phone] PCP - General Family Medicine 10/05/20
--- OUTSIDE RECORDS SUMMARY | 2025-09-01 10:31 | XMS_ITS | Encounter Summary ---
Author Organization [email or web address] Address [address] [facility] [address] [place] [address] Care Team Providers Care Cable [employer] Program Director Name Role Phone Alicja Cameron MD Primary Care Provider [phone] Reason for Visit * Reason Comments Med Refill Encounter Details Date Type Department Care Team ([facility] st Contact Info) Description 06/07/2024 Refill [facility] [address], [place] [phone] Alicja Cameron MD [address] [place], [place] [phone] Social History Tobacco Use Types Packs/Day Years [...] Description 10/08/2025 2:15 PM EST Office Visit [facility] [address] [place] [phone] Alcija Cameron MD [address] [place] [phone] documented as of this encounter Visit Diagnoses Not on filedocumented in this encounter Additional Health Concerns Assessment Noted Time PHQ-9 Depression Total Score: 0 02/16/20 23 4:18 PM EDT documented as of this encounter Care Teams [employer] Program Director Relationship Specialty Start Date End Date Alicja Cameron MD [address] [place] [address] [phone] PCP - General Family Medicine 10/05/20 documented as of this encounter
== END 2025-09-01 10:29 | disposition home or self-care (01) ==
LOC: HO.HUSH 09:29
PROVIDERS: PCP General Practice; Visit Provider Urology
DX: N40.1 Benign prostatic hyperplasia with lower urinary tract symptoms (principal); R97.20 Elevated prostate specific antigen [PSA]; R35.1 Nocturia
CPT/HCPCS: 99214; G2211

== ENCOUNTER → 2025-09-01 09:29 | Outpatient (BNVA) | payer OTHER, SELFPAY | PROVIDERS: PCP General Practice; Visit Provider Urology | DX: R35.1 Nocturia (principal); N40.1 Benign prostatic hyperplasia with lower urinary tract symptoms; R97.20 Elevated prostate specific antigen [PSA] | CPT/HCPCS: 99212 ==